=== PATIENT | male | born 1980 | race African-American/Black ===

== ENCOUNTER 2021-03-16 05:31 | Emergency (ER) | payer MEDICAID, SELFPAY ==
[2021-03-16 05:43] VITALS: BP 113/72; BP 124/52; PULSE 104; PULSE 118; RESP 16; TEMP 37; O2SAT 100; O2SAT 95; BMI 23.6
[2021-03-16 05:50] VITALS: PULSE 118
--- NOTE | 2021-03-16 06:04 | ED.PSYCH ---
HPI - Psych General Chief Complaint: ETOH/Substance Use Stated Complaint: PCP USE Time Seen by Provider: 03/16/21 06:04 Source: EMS and police History of Present Illness HPI Narrative: Patient used but denied using it stated that he use heroin was found walking acting erratically on the street patient anxious when arrived in the ER denies any hallucinations Related Data Allergies Allergy/AdvReac Type Severity Reaction Status Date / Time No Known Allergies Allergy Verified 03/16/21 05:57 Review of Systems Review of Systems: Yes all other systems are reviewed and are negative [facility] Past Medical History Medical History Substance abuse Social History Social History Advance Directives: No Advance Directives Information Provided: No Physical Exam Vital Signs: Vital Signs: Last Vital Signs Temp 98.6 F 03/16/21 05:43 Pulse 118 H 03/16/21 05:43 Resp 16 03/16/21 05:43 BP 113/72 03/16/21 05:43 Pulse Ox 95 03/16/21 05:43 Body Mass Index 23.6 Appearance: Alert. Oriented X3. No acute distress. Very anxious ,talking to himself Eyes: PERRLA, No Nystagmus ENT: Pharynx normal. Oral Mucosa moist atraumatic normocephalic Neck: Normal inspection. Neck supple. CVS: Normal heart rate and rhythm. Pulses normal. Respiratory: No respiratory distress. Equal air entry bilateral, no wheezing/rales/rhonchi Abdomen: Soft and nontender. Bowel sounds are present, no mass palpable, no CVA tenderness Skin: Skin warm and dry. Normal skin color. Normal skin turgor. Extremities: No lower extremity edema. No calf tenderness Neuro: Oriented X 3. No motor deficit. No sensory deficit.No cerebellar signs , cranial nerves II-XII intact MDM - Psych Lab Data Labs: Lab Results 03/16/21 Range/Units 06:00 Urine Color YELLOW Urine Appearance HAZY Urine pH 6.0 (5.0-8.0) Ur Specific Universal >= 1.030 H (1.005-1.025) Urine Protein 2+ H (NEG-TRACE) MG/DL Urine Glucose (UA) NEG (NEG) MG/DL Urine Ketones NEG (NEG) MG/DL Urine Blood 3+ H (NEG) Urine Nitrite NEG (NEG) Ur Leukocyte Esterase NEG (NEG) Urine RBC 1-4 (0) /HPF Urine WBC 1-4 (0-4) /HPF Ur Squamous Epith Cells 2+ /LPF Urine Bacteria 2+ /LPF Hyaline Casts 15-29 /LPF Granular Casts 5-9 /LPF Urine Mucus 2+ /LPF Discharge Plan Discharge Clinical Impression: PCP (phencyclidine) abuse Patient Disposition: Home, Self-Care Instructions: Polysubstance Abuse (ED) Additional Instructions: Stop using heroin/PCP follow-up with detox
[2021-03-16 06:05] LABS: Glucose Urine UA NEG (NEG); Leukocyte Esterase Urine NEG (NEG); Nitrite Urine NEG (NEG); Specific Gravity - Urine >= 1.030 (1.005-1.025); Urine Blood 3+ (NEG); Urine Ketones NEG (NEG); Urine Protein 2+ MG/DL (NEG-TRACE)
[2021-03-16 06:06] LABS: Color Urine YELLOW
[2021-03-16 06:07] LABS: Appearance Urine HAZY
[2021-03-16 06:13] LABS: Bacteria Urine 2+ /LPF; Mucus Urine 2+ /LPF; Squamous Epithelial Cell Urine 2+ /LPF
== END 2021-03-16 06:46 | disposition home or self-care (01) ==
PROVIDERS: Emergency Provider Internal Medicine
DX: F11.10 Opioid abuse, uncomplicated (principal); F16.10 Hallucinogen abuse, uncomplicated; Z71.51 Drug abuse counseling and surveillance of drug abuser
CPT/HCPCS: 81001; 99283; 99284

== ENCOUNTER 2021-03-16 14:08 | Inpatient (IN) | payer MEDICAID, SELFPAY ==
[2021-03-16] VITALS (9 sets, daily range): BP systolic 128–151; BP diastolic 64–90; PULSE 72–115; RESP 11–18; TEMP 36.4–36.9; O2SAT 93–100; BMI 28.7
--- NOTE | ~2021-03-16 | XR_ITS ---
EXAMINATION: XR CHEST CLINICAL INFORMATION: Shortness of breath COMPARISON: None TECHNIQUE: Frontal view of the chest was obtained. FINDINGS: The cardiac silhouette is normal. There is mild diffuse bronchial wall thickening. There are no areas of consolidation. Lung volumes are diminished. There are no pleural effusions or pneumothoraces. The bones and soft tissues are unremarkable for the patient's age. XR/XR chest 1V IMPRESSION: Diminished lung volumes. Bronchial wall thickening may be infectious and/or inflammatory in etiology.
--- NOTE | 2021-03-16 14:32 | PC.NURSE ---
patient was discharged from this facility early this morning for same s/s- provider made aware patient acting bizarre, slapping his hands together and rocking back and forth in the recliner unable to be redirected. patient unsure why he is here, denies needing to be here.
[2021-03-16] MEDS: LORazepam 2 MG/ML VIAL IM (14:49)
[2021-03-16] MEDS: Haloperidol Lactate 5 MG/ML VIAL 10 MG IM (14:49)
[2021-03-16 15:18] LABS: MANUAL DIFF FLAG NO
[2021-03-16 15:21] LABS: Basophils Percent Auto 0.4 % (0-2); Eosinophils Absolute Auto 0.1 X10*3/uL (0.0-0.4); Eosinophils Percent Auto 0.6 % (0-4); Hematocrit 38.1 % (42-52); Hemoglobin 11.9 g/dl (14.0-18.0); Imm Gran Abs Auto 0.01 X10*3/uL (0.00-0.03); Imm Gran Pct Auto 0.1 % (0.0-0.4); Lymphocytes Absolute Auto 2.1 X10*3/uL (1.2-4.9); Lymphocytes Percent Auto 26.1 % (20-40); Mean Corpuscular HGB Conc 31.2 g/dl (31.0-36.0); Mean Corpuscular Hemoglobin 27.3 pg (27.0-33.0); Mean Corpuscular Volume 87.4 fL (80-98); Mean Platelet Volume 9.6 fL (9.4-12.4); Monocytes Absolute Auto 1.2 X10*3/uL (0.1-1.2); Monocytes Percent Auto 14.1 % (2-11); Neutrophils Absolute Auto 4.8 X10*3/uL (2.0-8.3); Neutrophils Percent Auto 58.7 % (45-73); Platelet Count 311 X10*3/uL (160-400); Red Blood Count 4.36 X10*6/uL (4.60-5.80); Red Cell Distribution Width 13.9 % (11.0-16.0); White Blood Count 8.2 X10*3/uL (4.8-10.8)
[2021-03-16] MEDS: 0.9 % Sodium Chloride 1,000 ML 999 ML IV ×3 (15:27→16:53)
[2021-03-16] MEDS: Ketamine HCl 500 MG/5 ML VIAL 360 MG IM (15:34)
[2021-03-16 15:58] LABS: Lactic Acid 1.5 mmol/L (0.5-2.0)
--- NOTE | 2021-03-16 16:01 | ED.AMS ---
HPI - Altered Mental Status General Chief Complaint: Altered Mental Status <Zaid Duron MD - Last Filed: 03/16/21 16:13> Stated Complaint: UNDER THE INFLUENCE <Zaid Duron MD - Last Filed: 03/16/21 16:13> Time Seen by Provider: 03/16/21 14:35 <Zaid Duron MD - Last Filed: 03/16/21 16:13> Source: EMS <Zaid Duron MD - Last Filed: 03/16/21 16:13> Mode of arrival: EMS <Zaid Duron MD - Last Filed: 03/16/21 16:13> Limitations: altered mental status <Zaid Duron MD - Last Filed: 03/16/21 16:13> History of Present Illness HPI narrative: 40-year-old male who was brought to the emergency department for evaluation of erratic behavior. Apparently, the patient was outside acting erratically, the patient was making bizarre gestures with his arms, he was singing very loudly and dancing, he was swearing, hitting himself in the head and chest. Police called EMS and the patient was brought to the emergency department. On presentation the patient was moving around the stretcher, he was very diaphoretic and uncooperative. The patient could be redirected but would quickly go back to his erratic behavior. The patient was seen earlier emergency department for similar behavior. The discharge diagnosis was polysubstance use however a urine drug screen was not obtained. <Zaid Duron MD - Last Filed: 03/16/21 16:13> Related Data Allergies/Adverse Reactions: Allergies Allergy/AdvReac Type Severity Reaction Status Date / Time No Known Allergies Allergy Verified 03/16/21 05:57 <Zaid Duron MD - Last Filed: 03/16/21 16:13> Review of Systems Review of Systems: Yes Unobtainable due to mental status <Zaid Duron MD - Last Filed: 03/16/21 16:13> PMFSH Past Medical History PMFSH Narrative: Past medical history: Unobtainable secondary to altered mental status. Surgical history: Unobtainable secondary to altered mental status. Social history: Unobtainable secondary to altered mental status. <Zaid Duron MD - Last Filed: 03/16/21 16:13> Medical History: Medical History Substance abuse <Zaid Duron MD - Last Filed: 03/16/21 16:13> Social History Social History: Social History Advance Directives: No Advance Directives Information Provided: No <Zaid Duron MD - Last Filed: 03/16/21 16:13> Physical Exam Vital Signs: Vital Signs: Last Vital Signs Temp 98.5 F 03/16/21 15:47 Pulse 102 H 03/16/21 15:47 Resp 12 03/16/21 15:47 BP 137/88 03/16/21 15:47 Pulse Ox 94 03/16/21 15:47 Body Mass Index 28.7 <Zaid Duron MD - Last Filed: 03/16/21 16:13> Vital Signs: Last Vital Signs Temp 98.5 F 03/16/21 15:47 Pulse 102 H 03/16/21 15:47 Resp 12 03/16/21 15:47 BP 137/88 03/16/21 15:47 Pulse Ox 94 03/16/21 15:47 Body Mass Index 28.7 <Iban Colin MD - Last Filed: 03/16/21 16:44> Const: Other: Awake, alert, male, very diaphoretic, acting very erratically, will not stick in the chair or on the stretcher, patient is on his feet, dancing, moving his arms around rapidly, singing, shouting, hitting himself in the head and chest. Patient can be rehab directed for seconds to minutes but then resumes his erratic behavior again. <Zaid Duron MD - Last Filed: 03/16/21 16:13> HENMT: Head: Yes normal to inspection, Yes normocephalic and Yes atraumatic <Zaid Duron MD - Last Filed: 03/16/21 16:13> Ears: external ears normal <Zaid Duron MD - Last Filed: 03/16/21 16:13> General nose exam: Normal external nose present <MD Raquel Masters Last Filed: 03/16/21 16:13> Face and sinus: Yes normal facial exam <MD Raquel Masters Last Filed: 03/16/21 16:13> Eyes: General: appearance normal, both eyes and all related structures <Zaid Duron MD - Last Filed: 03/16/21 16:13> Pupils: Equal, round and reactive pupils present <MD Raquel Masters Last Filed: 03/16/21 16:13> Neck: Neck: Yes normal visual inspection, Yes no lymphadenopathy, Yes trachea midline and Yes supple <Zaid Duron MD - Last Filed: 03/16/21 16:13> Chest: Chest palpation & inspection: normal inspection of the chest and normal palpation of entire chest wall <MD Raquel Masters Last Filed: 03/16/21 16:13> Resp: Other: Tachypneic, breath sounds symmetric bilaterally, no wheezing, rhonchi or rales <MD Raquel Masters Last Filed: 03/16/21 16:13> Cardio: Rate: tachycardic <MD Raquel Masters Last Filed: 03/16/21 16:13> Rhythm: regular rhythm <MD Raquel Masters Last Filed: 03/16/21 16:13> Heart sounds: S1 normal heart sound present, S2 normal heart sound present and no murmurs <MD Raquel Masters Last Filed: 03/16/21 16:13> GI: Inspection: Yes normal to inspection <MD Raquel Masters Last Filed: 03/16/21 16:13> Palpation (GI): Soft to palpation, nontender and no guarding <MD Raquel Masters Last Filed: 03/16/21 16:13> Auscultation: normal bowel sounds <MD Raquel Masters Last Filed: 03/16/21 16:13> : General: Yes no CVA tenderness <Zaid Duron MD - Last Filed: 03/16/21 16:13> Back/Spine/Pelvis: Back: no CVA tenderness <Zaid Duron MD - Last Filed: 03/16/21 16:13> Skin: General skin exam: no rashes or lesions noted <Zaid Duron MD - Last Filed: 03/16/21 16:13> Neuro: Other: Pupils are equal round react to light, cranial nerves 2-12 are intact, patient's strength appears to be normal he is moving all his extremities symmetrically, patient will not cooperate with neurologic exam <Zaid Duron MD - Last Filed: 03/16/21 16:13> Cranial nerves: Yes Equal, round and reactive pupils present <Zaid Duron MD - Last Filed: 03/16/21 16:13> Extrem: General: Yes normal to inspection <Zaid Duron MD - Last Filed: 03/16/21 16:13> Psych: Other: Erratic behavior as discussed above <Zaid Duron MD - Last Filed: 03/16/21 16:13> Thought content: Normal thought content present <Zaid Duron MD - Last Filed: 03/16/21 16:13> Course Course Course Narrative: 40-year-old male who presents emergency department for evaluation of a retic behavior, patient was seen early in the emergency department for similar behavior which was felt to be secondary to polysubstance abuse. The patient was very diaphoretic, patient dancing, moving her radically, singing and hitting himself in the head and chest. The patient was redirectable but only for minutes and then he would after radically again. The patient was initially medicated with Haldol 10 mg IM and Ativan 2 mg IM with no effect. I was concerned that the patient had excited delirium and was at high risk for rhabdomyolysis therefore he was given ketamine 4 milligrams/kilogram IM (360 mg). The patient became calm and he was placed on a cardiac and O2 saturation monitor pain. Patient was ordered to get normal saline IV x3 L. laboratory evaluation was also ordered. 1610: CBC revealed a normal white count of 8200, mild anemia with an H&H of 11.9 and 38.8. Lactic acid was 1.5. Chemistry panel, CK, UA, urine tox screen and urine drug screen are all pending. At the end of my shift, the patient's care was turned over to my colleague, Dr. Iban Colin. <Zaid Duron MD - Last Filed: 03/16/21 16:13> Reevaluation(s) Reevaluation #1: received this patient with likely reaction to PCP, now with renal failure and casts, CPK 2340 will admit <Iban Colin MD - Last Filed: 03/16/21 16:44> Time: 16:43 <Iban Colin MD - Last Filed: 03/16/21 16:44> MDM - Altered Mental Status Lab Data Result diagrams: : 03/16/21 15:12 03/16/21 15:54 <Zaid Duron MD - Last Filed: 03/16/21 16:13> Labs: Lab Results 03/16/21 03/16/21 03/16/21 Range/Units 15:12 15:26 15:26 WBC 8.2 (4.8-10.8) X10*3/uL RBC 4.36 L (4.60-5.80) X10*6/uL Hgb 11.9 L (14.0-18.0) g/dl Hct 38.1 L (42-52) % MCV 87.4 (80-98) fL MCH 27.3 (27.0-33.0) pg MCHC 31.2 (31.0-36.0) g/dl RDW 13.9 (11.0-16.0) % Plt Count 311 (160-400) X10*3/uL MPV 9.6 (9.4-12.4) fL Immature Gran % (Auto) 0.1 (0.0-0.4) % Neut % (Auto) 58.7 (45-73) % Lymph % (Auto) 26.1 (20-40) % [place] % (Auto) 14.1 H (2-11) % Eos % (Auto) 0.6 (0-4) % Baso % (Auto) 0.4 (0-2) % Lymph # (Auto) 2.1 (1.2-4.9) X10*3/uL [place] # (Auto) 1.2 (0.1-1.2) X10*3/uL Eos # (Auto) 0.1 (0.0-0.4) X10*3/uL Baso # (Auto) 0.0 (0.0-0.2) X10*3/uL Abs Immat Gran (auto) 0.01 (0.00-0.03) X10*3/uL Absolute Neuts (auto) 4.8 (2.0-8.3) X10*3/uL Absolute Nucleated RBC 0.000 (0.0-0.012) X10*3/uL Nucleated RBC % (auto) 0.0 (0.0-0.2) /100WBC Sodium (135-145) mmol/L Potassium (3.3-5.1) mmol/L Chloride (96-108) mmol/L Carbon Dioxide (22-29) mmol/L Anion Gap (12-20) BUN (9-16) mg/dL Creatinine (0.5-1.4) mg/dL Estim Creat Clear Calc Estimated GFR Random Glucose (60-115) mg/dL Lactic Acid 1.5 (0.5-2.0) mmol/L Calcium (8.4-10.2) mg/dL Total Bilirubin (0.0-1.0) mg/dL AST (5-37) U/L ALT (0-40) U/L Alkaline Phosphatase (39-117) U/L Total Creatine Kinase (38-174) U/L Total Protein (6.5-8.0) g/dL Albumin (3.5-5.0) g/dL Lipase (8-78) U/L Ethyl Alcohol < 10 mg/dL 03/16/21 Range/Units 15:54 WBC (4.8-10.8) X10*3/uL RBC (4.60-5.80) X10*6/uL Hgb (14.0-18.0) g/dl Hct (42-52) % MCV (80-98) fL MCH (27.0-33.0) pg MCHC (31.0-36.0) g/dl RDW (11.0-16.0) % Plt Count (160-400) X10*3/uL MPV (9.4-12.4) fL Immature Gran % (Auto) (0.0-0.4) % Neut % (Auto) (45-73) % Lymph % (Auto) (20-40) % [place] % (Auto) (2-11) % Eos % (Auto) (0-4) % Baso % (Auto) (0-2) % Lymph # (Auto) (1.2-4.9) X10*3/uL [place] # (Auto) (0.1-1.2) X10*3/uL Eos # (Auto) (0.0-0.4) X10*3/uL Baso # (Auto) (0.0-0.2) X10*3/uL Abs Immat Gran (auto) (0.00-0.03) X10*3/uL Absolute Neuts (auto) (2.0-8.3) X10*3/uL Absolute Nucleated RBC (0.0-0.012) X10*3/uL Nucleated RBC % (auto) (0.0-0.2) /100WBC Sodium 141 (135-145) mmol/L Potassium 4.4 (3.3-5.1) mmol/L Chloride 109 H (96-108) mmol/L Carbon Dioxide 22 (22-29) mmol/L Anion Gap 14 (12-20) BUN 29 H (9-16) mg/dL Creatinine 2.11 H (0.5-1.4) mg/dL Estim Creat Clear Calc 51.6 Estimated GFR 35 Random Glucose 82 (60-115) mg/dL Lactic Acid (0.5-2.0) mmol/L Calcium 9.0 (8.4-10.2) mg/dL Total Bilirubin 1.3 H (0.0-1.0) mg/dL AST 74 H (5-37) U/L ALT 32 (0-40) U/L Alkaline Phosphatase 70 (39-117) U/L Total Creatine Kinase 2340 H (38-174) U/L Total Protein 6.9 (6.5-8.0) g/dL Albumin 4.1 (3.5-5.0) g/dL Lipase 9 (8-78) U/L Ethyl Alcohol mg/dL <Zaid Duron MD - Last Filed: 03/16/21 16:13> Lab Results 03/16/21 03/16/21 03/16/21 Range/Units 15:12 15:26 15:26 WBC 8.2 (4.8-10.8) X10*3/uL RBC 4.36 L (4.60-5.80) X10*6/uL Hgb 11.9 L (14.0-18.0) g/dl Hct 38.1 L (42-52) % MCV 87.4 (80-98) fL MCH 27.3 (27.0-33.0) pg MCHC 31.2 (31.0-36.0) g/dl RDW 13.9 (11.0-16.0) % Plt Count 311 (160-400) X10*3/uL MPV 9.6 (9.4-12.4) fL Immature Gran % (Auto) 0.1 (0.0-0.4) % Neut % (Auto) 58.7 (45-73) % Lymph % (Auto) 26.1 (20-40) % [place] % (Auto) 14.1 H (2-11) % Eos % (Auto) 0.6 (0-4) % Baso % (Auto) 0.4 (0-2) % Lymph # (Auto) 2.1 (1.2-4.9) X10*3/uL [place] # (Auto) 1.2 (0.1-1.2) X10*3/uL Eos # (Auto) 0.1 (0.0-0.4) X10*3/uL Baso # (Auto) 0.0 (0.0-0.2) X10*3/uL Abs Immat Gran (auto) 0.01 (0.00-0.03) X10*3/uL Absolute Neuts (auto) 4.8 (2.0-8.3) X10*3/uL Absolute Nucleated RBC 0.000 (0.0-0.012) X10*3/uL Nucleated RBC % (auto) 0.0 (0.0-0.2) /100WBC Sodium (135-145) mmol/L Potassium (3.3-5.1) mmol/L Chloride (96-108) mmol/L Carbon Dioxide (22-29) mmol/L Anion Gap (12-20) BUN (9-16) mg/dL Creatinine (0.5-1.4) mg/dL Estim Creat Clear Calc Estimated GFR Random Glucose (60-115) mg/dL Lactic Acid 1.5 (0.5-2.0) mmol/L Calcium (8.4-10.2) mg/dL Total Bilirubin (0.0-1.0) mg/dL AST (5-37) U/L ALT (0-40) U/L Alkaline Phosphatase (39-117) U/L Total Creatine Kinase (38-174) U/L Total Protein (6.5-8.0) g/dL Albumin (3.5-5.0) g/dL Lipase (8-78) U/L Ethyl Alcohol < 10 mg/dL 03/16/21 Range/Units 15:54 WBC (4.8-10.8) X10*3/uL RBC (4.60-5.80) X10*6/uL Hgb (14.0-18.0) g/dl Hct (42-52) % MCV (80-98) fL MCH (27.0-33.0) pg MCHC (31.0-36.0) g/dl RDW (11.0-16.0) % Plt Count (160-400) X10*3/uL MPV (9.4-12.4) fL Immature Gran % (Auto) (0.0-0.4) % Neut % (Auto) (45-73) % Lymph % (Auto) (20-40) % [place]estone % (Auto) (2-11) % Eos % (Auto) (0-4) % Baso % (Auto) (0-2) % Lymph # (Auto) (1.2-4.9) X10*3/uL [place] # (Auto) (0.1-1.2) X10*3/uL Eos # (Auto) (0.0-0.4) X10*3/uL Baso # (Auto) (0.0-0.2) X10*3/uL Abs Immat Gran (auto) (0.00-0.03) X10*3/uL Absolute Neuts (auto) (2.0-8.3) X10*3/uL Absolute Nucleated RBC (0.0-0.012) X10*3/uL Nucleated RBC % (auto) (0.0-0.2) /100WBC Sodium 141 (135-145) mmol/L Potassium 4.4 (3.3-5.1) mmol/L Chloride 109 H (96-108) mmol/L Carbon Dioxide 22 (22-29) mmol/L Anion Gap 14 (12-20) BUN 29 H (9-16) mg/dL Creatinine 2.11 H (0.5-1.4) mg/dL Estim Creat Clear Calc 51.6 Estimated GFR 35 Random Glucose 82 (60-115) mg/dL Lactic Acid (0.5-2.0) mmol/L Calcium 9.0 (8.4-10.2) mg/dL Total Bilirubin 1.3 H (0.0-1.0) mg/dL AST 74 H (5-37) U/L ALT 32 (0-40) U/L Alkaline Phosphatase 70 (39-117) U/L Total Creatine Kinase 2340 H (38-174) U/L Total Protein 6.9 (6.5-8.0) g/dL Albumin 4.1 (3.5-5.0) g/dL Lipase 9 (8-78) U/L Ethyl Alcohol mg/dL <Iban Colin MD - Last Filed: 03/16/21 16:44> Discharge Plan Discharge Patient Disposition: Admitted As Inpatient <Zaid Duron MD - Last Filed: 03/16/21 16:13>
[2021-03-16 16:12] LABS: Ethanol < 10 mg/dL
[2021-03-16 16:39] LABS: Alanine Aminotransferase 32 U/L (0-40); Albumin Level 4.1 g/dL (3.5-5.0); Alkaline Phosphatase 70 U/L (39-117); Anion Gap 14 (12-20); Aspartate Amino Transferase 74 U/L (5-37); Bilirubin Total 1.3 mg/dL (0.0-1.0); Blood Urea Nitrogen 29 mg/dL (9-16); Carbon Dioxide 22 mmol/L (22-29); Chloride 109 mmol/L (96-108); Creatinine Clr Calc Pharmacy 51.6; Estimated Glomerular Filt Rate 35; Glucose Random 82 mg/dL (60-115); Lipase 9 U/L (8-78); Potassium 4.4 mmol/L (3.3-5.1); Sodium 141 mmol/L (135-145); Total Protein 6.9 g/dL (6.5-8.0)
--- NOTE | 2021-03-16 16:56 | PC.NURSE ---
Patient is in the bed asleep currently. Pt respirations are even and nonlabored at a rate of 12. pt is also on CO2 detector which reads 39.
--- NOTE | 2021-03-16 17:04 | ECG_ITS ---
Test Reason : OVERDOSE Blood Pressure : / mmHG Vent. Rate : 078 BPM Atrial Rate : 078 BPM P-R Int : 150 ms QRS Dur : 076 ms QT Int : 406 ms P-R-T Axes : 046 036 031 degrees QTc Int : 462 ms Normal sinus rhythm Normal ECG No previous ECGs available Referred By: Iban Colin Electronically Signed By:MELVIN LEMUS MD
--- NOTE | 2021-03-16 17:40 | PC.NURSE ---
16fr grant catheter placed using sterile technique. Urnie flow obtained and balloon inflated with 10 ml ns. catheter secured to right inner thigh with securement device.
--- NOTE | 2021-03-16 17:57 | PC.NURSE ---
Hospitalist at bedside requesting a grant catheter placed in patient
[2021-03-16 18:03] LABS: Glucose Urine UA NEG (NEG); Leukocyte Esterase Urine NEG (NEG); Nitrite Urine NEG (NEG); PH 5.5 (5.0-8.0); Specific Gravity - Urine >= 1.030 (1.005-1.025); UACC Culture Trigger NO; Urine Blood 3+ (NEG); Urine Ketones 15 MG/DL (NEG); Urine Protein 2+ MG/DL (NEG-TRACE)
[2021-03-16 18:21] LABS: Appearance Urine HAZY; Color Urine YELLOW
[2021-03-16 18:30] LABS: Amphetamine Screen Urine Not Detected (Not Detect); Barbiturates, Urine Not Detected (Not Detect); Benzodiazepines Screen Urine Not Detected (Not Detect); Cannabinoid Screen Urine Not Detected (Not Detect); Cocaine Screen Urine POSITIVE (Not Detect); Fentanyl, urine POSITIVE (Not Detect); Opiate Screen Urine POSITIVE (Not Detect); Phencyclidine Screen Urine Not Detected (Not Detect)
[2021-03-16 18:53] LABS: Amorphous Sediment Urine 1+ /LPF; Bacteria Urine 1+ /LPF; Squamous Epithelial Cell Urine 1+ /LPF; WBC Urine 0 /HPF (0-4)
[2021-03-16 19:22] LABS: Influenza A PCR NEGATIVE (Negative); Influenza B PCR NEGATIVE (Negative); Resp Syncy Virus RNA Qual PCR NEGATIVE (Negative); SARS COV2 PCR INHOUSE NEGATIVE (Negative)
--- NOTE | 2021-03-16 19:35 | PHA.MEDREC ---
Pharmacy Consult ? Medication Reconciliation Pharmacy has completed the medication reconciliation.
[2021-03-16] MEDS: Dextrose 5 % and 0.9 % NaCl 1,000 ML 100 ML IVCONT (19:54)
--- NOTE | 2021-03-16 20:58 | HP_ITS ---
DATE OF SERVICE: 03/16/2021 CHIEF COMPLAINT: Altered behavior. HISTORY OF PRESENTING ILLNESS: This is a 40-year-old gentleman, who was brought into the emergency room for evaluation of erratic behavior. The patient was found on the street, making bizarre gestures with his arms, singing loudly and dancing. He was swearing, hitting himself in the head and chest. Therefore, police called EMS and the patient was brought to [place] [facility]. In the ER, the patient was moving around the stretcher. He was noted to be diaphoretic and tachycardic; therefore, patient was treated in the emergency room with multiple rounds of Ativan as well as Haldol and ketamine. The patient now is completely sedated. Of note, the patient was seen early this a.m. in the emergency department with similar behavior and was discharged with a diagnosis of polysubstance abuse. The patient's laboratory data revealed that he has elevated creatinine of 2.1, mildly elevated liver enzyme, and an elevated creatine kinase of 2340. His electrolytes otherwise are unremarkable. CBC showed a hematocrit of 38.1, normal platelet count. The patient is now being admitted to [facility] with acute encephalopathy related to toxic ingestion. His urine toxicology just came back positive for opiates, fentanyl, and cocaine. His alcohol level is less than 10. PAST MEDICAL HISTORY: Unobtainable due to sedation. PAST SURGICAL HISTORY: Unobtainable as above. SOCIAL HISTORY: Unobtainable. ALLERGIES: NO KNOWN ALLERGIES. HOME MEDICATIONS: Unknown. REVIEW OF SYSTEMS: Unable to obtain due to sedation PHYSICAL EXAMINATION: GENERAL: The patient is unarousable. VITALS: BP 130/74, pulse of 78, respiratory rate of 11, O2 saturation 98% on 2 L LUNGS: coarse breath sounds bilaterally. HEART: Regular rate and rhythm. ABDOMEN: Soft. Bowel sounds are audible. There is a midline scar noted. EXTREMITIES: Without edema. NEURO: The patient is not arousable likely due to use of heavy sedatives. ASSESSMENT AND PLAN: This is a 40-year-old gentleman, who was brought into [facility] due to erratic behavior. The patient was seen early in the emergency room with similar behavioral issues and was discharged with a diagnosis of polysubstance abuse. The patient was brought back to [place] [place] [facility] with persistent abnormal behavior including singing, hitting himself. The patient in the ER continued to have abnormal behavior; therefore, was treated with 10 mg of IM Haldol followed by Ativan 2 mg IM with no effect. It was felt that the patient is delirious. Therefore, ketamine 4 mg/kg total 360 mg IM was given. After receiving the medication, the patient has been sleeping. His vitals currently are stable, obtain an EKG prior to admission it showed he has normal sinus rhythm. No acute abnormality noted. Chest x-ray obtained shows diminished lung volumes, bronchial wall thickening may be infectious or inflammatory in etiology. The patient will be admitted to telemetry unit, with a diagnosis of acute encephalopathy. Problem List: 1. Acute toxic metabolic encephalopathy. will continue IV fluids, tele monitor. We will assess respiration closely. If the patient is unable to maintain his airway or become more sedated, we will have low threshold for transferring to ICU. We will obtain care team consult for history of substance abuse. 2. Acute kidney injury with rhabdomyolysis. The patient will be treated with IV fluids. follow renal function and CPK closely. 3. History of cocaine and marijuana abuse. We will obtain care team consult. 4. Deep vein thrombosis prophylaxis. Low risk for deep vein thrombosis with no other comorbidities. MD JENNY Stiles/PILAR / [phone] MTDD
[2021-03-17 00:37] VITALS: BMI 25.2
[2021-03-17 02:58] VITALS: BP 120/64; PULSE 74; RESP 18; TEMP 36.4; O2SAT 100
[2021-03-17] MEDS: Dextrose 5 % and 0.9 % NaCl 1,000 ML 100 ML IVCONT (06:06)
[2021-03-17 06:58] LABS: Anion Gap 11 (12-20); Blood Urea Nitrogen 16 mg/dL (9-16); Calcium 8.5 mg/dL (8.4-10.2); Carbon Dioxide 24 mmol/L (22-29); Chloride 111 mmol/L (96-108); Estimated Glomerular Filt Rate > 60; Glucose Random 84 mg/dL (60-115); Potassium 4.1 mmol/L (3.3-5.1); Sodium 142 mmol/L (135-145)
[2021-03-17 07:34] VITALS: BP 146/79; PULSE 87; RESP 20; TEMP 36.9; O2SAT 100
[2021-03-17 08:24] LABS: Alanine Aminotransferase 30 U/L (0-40); Albumin Level 3.7 g/dL (3.5-5.0); Alkaline Phosphatase 63 U/L (39-117); Aspartate Amino Transferase 75 U/L (5-37); Bilirubin Direct 0.4 mg/dL (0.0-0.5); Bilirubin Total 0.9 mg/dL (0.0-1.0); Total Protein 6.3 g/dL (6.5-8.0)
[2021-03-17 11:17] VITALS: BP 134/72; PULSE 87; RESP 20; TEMP 37.2; O2SAT 99
--- NOTE | 2021-03-17 12:34 | MHC.CM.PN ---
Addendum entered by Fide Sanz 03/17/21 15:50: PT CLEARED TO DC HOME TODAY WITH NO SERVICES Addendum entered by Fide Sanz 03/17/21 14:03: REFERRAL SENT TO [facility] [place] [facility] TO ENSURE PT HAS HEALTH INSURANCE HE DOES NOT HAVE, OR WILL NOT PROVIDE, ANY DETAILS. Original Note: CM ATTEMPTED TO MEET WITH PT WHO WAS MINIMALLY ENGAGED. PT DID ANSWER SOME QUESTIONS HOWEVER NOT OTHERS. PT REPORTS HE DOES HAVE [facility] BUT DOES NOT HAVE A PCP. PT DID NOT RESPOND WHEN ASKED IF HE NEEDED INFO ON GETTING A PCP. PT SHOOK HIS HEAD NO WHEN ASKED ABOUT DME AND SERVICES. CURRENT DC PLAN IS HOME PENDING CARE TEAM CONSULT. TRANSPORT UNKNOWN
--- NOTE | 2021-03-17 14:00 | MHC.RECOVRN ---
T/w met with pt after consult placed to CARE Team. T/w introduced self to pt. Pt declined to speak with t/w regarding substance use. Pt provided with resources as well as t/w card if he would like to discuss recovery. LB and RN aware.
[2021-03-17 15:26] VITALS: BP 140/84; PULSE 87; RESP 18; TEMP 36.8; O2SAT 96
--- NOTE | 2021-03-17 15:42 | PM.DS ---
DS: Providers Provider Date of Service: 03/17/21 Date of admission: 03/16/21 18:49 Primary care physician: Unknown Physician Consults: 03/17/21 11:15 Consult to Care Team Routine Comment: Reason for consultation: substance abuse DS: Medications Discharge Medications Home Medications: Home Medications Medication Instructions Recorded Confirmed No Known Home Meds 03/16/21 03/16/21 DS: Summary Hospital Course Hospital Course: History of presenting illness 40-year-old gentleman, who was brought into the emergency room for evaluation of erratic behavior.? The patient was found on the street, making bizarre gestures with his arms, singing loudly and dancing.? He was swearing, hitting himself in the head and chest.? Therefore, police called EMS and the patient was brought to [facility].? In the ER, the patient was moving around the stretcher.? He was noted to be diaphoretic and tachycardic therefore, patient was treated in the emergency room with multiple rounds of Ativan as well as Haldol and ketamine.? The patient now is completely sedated. Of note, the patient was seen early this a.m. in the emergency department with similar behavior and was discharged with a diagnosis of polysubstance abuse. The patient's laboratory data revealed that he has elevated creatinine of 2.1,mildly elevated liver enzyme, and an elevated creatine kinase of 2340.? His electrolytes otherwise are unremarkable.? CBC showed a hematocrit of 38.1,normal platelet count.? The patient is now being admitted to [facility] with acute encephalopathy related to toxic ingestion.? His urine toxicology just came back positive for opiates, fentanyl, and cocaine.? His alcohol level is less than 10. Hospital course Patient admitted to medical floor with diagnosis of Acute encephalopathy and acute kidney injury related to illicit drug use, patient treated with IV fluids, tele monitor showed no arrhythmia, this a.m. patient awake alert Informed that he smoke cocaine, and use opiates , also smokes cigarettes 1 pack a day, denies alcohol use, denies any other medical issues, not on home medications, patient tolerating diet with no nausea no vomiting or abdominal pain there is no evidence of acute infection, renal function improved patient refused to be seen by care team, therefore is being discharged home with strong recommendation to abstain from illicit drug use and to drink plenty of fluids since CPK remains elevated. Discharge diagnosis Acute toxic metabolic encephalopathy Polysubstance abuse Acute renal failure Rhabdomyolysis Time Spent with Patient Time attestation: Total time spent providing and/or coordinating discharge services: Discharge coordination time: Greater than 30 minutes Quality: Stroke Does the patient have a stroke diagnosis?: No Physical Exam Vital Signs: Vital Signs: Last Vital Signs Temp 98.2 F 03/17/21 15:26 Pulse 87 03/17/21 15:26 Resp 18 03/17/21 15:26 BP 140/84 H 03/17/21 15:26 Pulse Ox 96 03/17/21 15:26 Body Mass Index 25.2 General patient resting comfortably in no acute distress. Neck is supple no JVD. CVS regular rate rhythm, Respiratory lungs clear to auscultation, no respiratory distress, no wheeze, no rhonchi. Gastrointestinal abdomen soft, nontender, bowel sounds audible, no guarding , no rigidity. Extremities no clubbing cyanosis or edema. Neuro nonfocal patient moving all 4 extremity speech clear. Skin no rash DS: Data Data Completed and Pending Labs on day of discharge: Laboratory Results - last 24 hr 03/16/21 03/16/21 03/16/21 15:12 15:26 15:26 Sodium Potassium Chloride Carbon Dioxide Anion Gap BUN Creatinine Estim Creat Clear Calc Estimated GFR Random Glucose Lactic Acid 1.5 Calcium Total Bilirubin Direct Bilirubin AST ALT Alkaline Phosphatase Total Creatine Kinase Troponin I High Sens 5.0 Total Protein Albumin Lipase Urine Color Urine Appearance Urine pH Ur Specific [place] Urine Protein Urine Glucose (UA) Urine Ketones Urine Blood Urine Nitrite Ur Leukocyte Esterase Urine RBC Urine WBC Ur Squamous Epith Cells Amorphous Sediment Urine Bacteria Granular Casts Urine Opiates Screen Urine Fentanyl Screen Ur Barbiturates Screen Ur Phencyclidine Scrn Ur Amphetamines Screen U Benzodiazepines Scrn Urine Cocaine Screen U Marijuana (THC) Screen Ethyl Alcohol < 10 Coronavirus (PCR) Influenza Type A (PCR) Influenza Type B (PCR) RSV RNA Qual (PCR) 03/16/21 03/16/21 03/16/21 15:54 17:52 17:52 Sodium 141 Potassium 4.4 Chloride 109 H Carbon Dioxide 22 Anion Gap 14 BUN 29 H Creatinine 2.11 H Estim Creat Clear Calc 51.6 Estimated GFR 35 Random Glucose 82 Lactic Acid Calcium 9.0 Total Bilirubin 1.3 H Direct Bilirubin AST 74 H ALT 32 Alkaline Phosphatase 70 Total Creatine Kinase 2340 H Troponin I High Sens Total Protein 6.9 Albumin 4.1 Lipase 9 Urine Color YELLOW Urine Appearance HAZY Urine pH 5.5 Ur Specific [place] >= 1.030 H Urine Protein 2+ H Urine Glucose (UA) NEG Urine Ketones 15 Urine Blood 3+ H Urine Nitrite NEG Ur Leukocyte Esterase NEG Urine RBC 1-4 Urine WBC 0 Ur Squamous Epith Cells 1+ Amorphous Sediment 1+ Urine Bacteria 1+ Granular Casts 5-9 Urine Opiates Screen Urine Fentanyl Screen Ur Barbiturates Screen Ur Phencyclidine Scrn Ur Amphetamines Screen U Benzodiazepines Scrn Urine Cocaine Screen U Marijuana (THC) Screen Ethyl Alcohol Coronavirus (PCR) NEGATIVE Influenza Type A (PCR) NEGATIVE Influenza Type B (PCR) NEGATIVE RSV RNA Qual (PCR) NEGATIVE 03/16/21 03/16/21 03/17/21 17:52 19:23 05:39 Sodium 142 Potassium 4.1 Chloride 111 H Carbon Dioxide 24 Anion Gap 11 L BUN 16 Creatinine 1.29 Estim Creat Clear Calc 77.0 Estimated GFR > 60 Random Glucose 84 Lactic Acid Calcium 8.5 Total Bilirubin 0.9 Direct Bilirubin 0.4 AST 75 H ALT 30 Alkaline Phosphatase 63 Total Creatine Kinase 2717 H Troponin I High Sens Total Protein 6.3 L Albumin 3.7 Lipase Urine Color Urine Appearance Urine pH Ur Specific [place] Urine Protein Urine Glucose (UA) Urine Ketones Urine Blood Urine Nitrite Ur Leukocyte Esterase Urine RBC Urine WBC Ur Squamous Epith Cells Amorphous Sediment Urine Bacteria Granular Casts Urine Opiates Screen POSITIVE H Urine Fentanyl Screen POSITIVE H Ur Barbiturates Screen Not Detected Ur Phencyclidine Scrn Not Detected Ur Amphetamines Screen Not Detected U Benzodiazepines Scrn Not Detected Urine Cocaine Screen POSITIVE H U Marijuana (THC) Screen Not Detected Ethyl Alcohol Coronavirus (PCR) Influenza Type A (PCR) Influenza Type B (PCR) RSV RNA Qual (PCR) Discharge Plan Discharge Patient Disposition: Home, Self-Care Discharge Diagnosis: Acute encephalopathy Rhabdomyolysis Polysubstance abuse Referrals: Physician,Unknown [Primary Care Provider] - 1 Week Discharge Medications: No Action No Known Home Meds RF: 0 Discharge Orders: Discharge Order (Routine); Ordered 03/17/21 Ordered By: Shyam Uriostegui Diet: advance to usual diet Activity on Discharge: As tolerated Stand Alone Forms: Patient Portal Discharge page Care Plan Goals: Polysubstance abuse/altered mental status strongly recommend to abstain from drug abuse patient refused to see care team Recommended to drink plenty of fluids due to elevated CPK Health Concerns: Abstain from illicit drug use, drink plenty of fluid Plan of Treatment: Follow-up with primary care physician in 1 week Assessment: As above
--- NOTE | 2021-03-17 15:44 | PC.NURSE ---
Patient in [facility] for monitoring s/p ingestion of high dose opioids to cause extreme psychosis in the field. Awakens to verbal stim, mostly dozing throughout the day, stating upon awakening that he wants to leave. Doctor in to eval patient but did not want to discharge. SR on the monitor, VSS. Wright removed. Patient refusing to speak to Care Team in regards to his sunstance use. Continues to state he just wants to leave. Consumed full lunch tray. Dr. Uriostegui notified of patient's desire to leave. She states she will discharge him to Home.
== END 2021-03-17 16:30 | disposition home or self-care (01) | DRG 917 ==
LOC: HO.ED 16:44 → HO.EDOVER 18:58 → HO.IMC 19:38
PROVIDERS: Emergency Medicine; Admitting Provider Hospitalist; Emergency Provider Emergency Medicine Emergency Medical Services; Visit Provider Hospitalist
DX: T40.5X1A Poisoning by cocaine, accidental (unintentional), initial encounter (principal); G92 Toxic encephalopathy; N17.9 Acute kidney failure, unspecified; M62.82 Rhabdomyolysis; T40.2X5A Adverse effect of other opioids, initial encounter; F19.10 Other psychoactive substance abuse, uncomplicated; F17.210 Nicotine dependence, cigarettes, uncomplicated; Z71.6 Tobacco abuse counseling; Z20.822 Contact with and (suspected) exposure to COVID-19; Y92.9 Unspecified place or not applicable
CPT/HCPCS: 0241U; 36415; 71045; 80048; 80053; 80076; 80307; 81001; 82077; 82550; 83605; 83690; 84484; 85025; 93005; 99285; C1758; J2060

== ENCOUNTER 2021-03-23 22:55 | Emergency (ER) | payer MEDICAID, SELFPAY ==
[2021-03-23 23:04] VITALS: BP 108/51; PULSE 110; RESP 20; TEMP 36.8; O2SAT 93
[2021-03-23 23:10] VITALS: BP 108/57; PULSE 113; RESP 27; TEMP 35.7; O2SAT 92; BMI 20.5
[2021-03-24 00:48] VITALS: BP 112/63; PULSE 82; RESP 14; O2SAT 95
--- NOTE | 2021-03-24 00:50 | ED.PSYCH ---
HPI - Psych General Chief Complaint: ETOH/Substance Use Stated Complaint: OD Time Seen by Provider: 03/24/21 00:40 Source: EMS Mode of arrival: EMS Limitations: altered mental status History of Present Illness HPI Narrative: Patient comes emergency room by EMS, patient was found in [place] acting erratically. Patient was seen here a few days ago with the same complaint. Patient states that today he was using marijuana and Klonopin. Next item the patient was here, his urine tested positive for opiates, fentanyl and cocaine. At this time, patient is somnolent, arousable but unable to give any history, falls right back asleep. Vital stable. Related Data Home Medications Medication Instructions Recorded Confirmed No Known Home Meds 03/16/21 03/16/21 Allergies Allergy/AdvReac Type Severity Reaction Status Date / Time No Known Allergies Allergy Verified 03/16/21 05:57 Review of Systems Review of Systems: Yes Unobtainable due to mental status PMFSH Past Medical History Medical History Substance abuse Social History Social History Household Members: Unknown / Unable to assess Unable to assess alcohol history related to: Unknown Alcohol intake: unknown Patient Tobacco Use Status: Tobacco use Unknown Use of substances other than those prescribed or required for medical reasons: Yes Substance Use Type: Crack/Cocaine and Marijuana Substance Use Frequency: Chronic Longstanding Substance Use Frequency Other:: [employer] Last Used Substance: Just Prior to Admission Any prior treatment program specific to substance use: No Advance Directives: No Advance Directives Information Provided: Yes service: No Current occupational status: unemployed Physical Exam Vital Signs: Vital Signs: Last Vital Signs Temp 96.3 F L 03/23/21 23:10 Pulse 82 03/24/21 00:48 Resp 14 03/24/21 00:48 BP 112/63 03/24/21 00:48 Pulse Ox 95 03/24/21 00:48 Body Mass Index 20.5 Const: Other: Appearance: Alert. No acute distress, intoxicated Eyes: Pupils equal, round and reactive to light. Injected conjunctiva ENT: Pharynx normal. Neck: Normal inspection. Neck supple. No lymph nodes noted. No crepitus CVS: Normal heart rate and rhythm. Pulses normal. Normal S1 and S2 Respiratory: No respiratory distress. Breath sounds normal. No Wheezing. No rales Abdomen: Soft and nontender. No rigidity. No distention. Skin: Skin warm and dry. Normal skin color. Normal skin turgor. Extremities: No lower extremity edema. No lower extremity edema. No Lacerations. No Rash Neuro: Very somnolent, easily arousable Course Course Course Narrative: Patient's lab shows that he has again a creatinine of 2.11, patient is being given IV fluids, chemistry was recheck at 05:00 after 2 L of normal saline. Sign out given to Dr. Duron. [facility] - Psych Lab Data Result diagrams: 03/24/21 00:55 03/24/21 00:55 Labs: Lab Results 03/24/21 03/24/21 Range/Units 00:55 00:55 WBC 8.0 (4.8-10.8) X10*3/uL RBC 4.15 L (4.60-5.80) X10*6/uL Hgb 11.6 L (14.0-18.0) g/dl Hct 36.9 L (42-52) % MCV 88.9 (80-98) fL MCH 28.0 (27.0-33.0) pg MCHC 31.4 (31.0-36.0) g/dl RDW 14.2 (11.0-16.0) % Plt Count 327 (160-400) X10*3/uL MPV 9.3 L (9.4-12.4) fL Immature Gran % (Auto) 0.3 (0.0-0.4) % Neut % (Auto) 66.6 (45-73) % Lymph % (Auto) 22.1 (20-40) % [place] % (Auto) 9.5 (2-11) % Eos % (Auto) 1.1 (0-4) % Baso % (Auto) 0.4 (0-2) % Lymph # (Auto) 1.8 (1.2-4.9) X10*3/uL [place] # (Auto) 0.8 (0.1-1.2) X10*3/uL Eos # (Auto) 0.1 (0.0-0.4) X10*3/uL Baso # (Auto) 0.0 (0.0-0.2) X10*3/uL Abs Immat Gran (auto) 0.02 (0.00-0.03) X10*3/uL Absolute Neuts (auto) 5.3 (2.0-8.3) X10*3/uL Absolute Nucleated RBC 0.000 (0.0-0.012) X10*3/uL Nucleated RBC % (auto) 0.0 (0.0-0.2) /100WBC Sodium 144 (135-145) mmol/L Potassium 4.4 (3.3-5.1) mmol/L Chloride 109 H (96-108) mmol/L Carbon Dioxide 27 (22-29) mmol/L Anion Gap 12 (12-20) BUN 29 H D (9-16) mg/dL Creatinine 2.11 H (0.5-1.4) mg/dL Estim Creat Clear Calc 40.6 Estimated GFR 35 Random Glucose 85 (60-115) mg/dL Calcium 9.5 D (8.4-10.2) mg/dL Total Bilirubin 0.6 (0.0-1.0) mg/dL Direct Bilirubin 0.2 (0.0-0.5) mg/dL AST 45 H (5-37) U/L ALT 35 (0-40) U/L Alkaline Phosphatase 88 D (39-117) U/L Total Creatine Kinase 850 H D (38-174) U/L Total Protein 7.4 (6.5-8.0) g/dL Albumin 4.2 (3.5-5.0) g/dL Discharge Plan Discharge Clinical Impression: MIGUEL (acute kidney injury), Polysubstance abuse Patient Disposition: Home, Self-Care Instructions: Acute Kidney Injury (DC), Polysubstance Abuse (ED) Additional Instructions: Please follow-up with your primary care physician tomorrow. If you have any worsening or new symptoms, please return to the emergency room or call 911 Prescriptions: No Action No Known Home Meds RF: 0
[2021-03-24 01:02] LABS: MANUAL DIFF FLAG NO
[2021-03-24 01:04] LABS: Basophils Percent Auto 0.4 % (0-2); Eosinophils Absolute Auto 0.1 X10*3/uL (0.0-0.4); Eosinophils Percent Auto 1.1 % (0-4); Hematocrit 36.9 % (42-52); Hemoglobin 11.6 g/dl (14.0-18.0); Imm Gran Abs Auto 0.02 X10*3/uL (0.00-0.03); Imm Gran Pct Auto 0.3 % (0.0-0.4); Lymphocytes Absolute Auto 1.8 X10*3/uL (1.2-4.9); Lymphocytes Percent Auto 22.1 % (20-40); Mean Corpuscular HGB Conc 31.4 g/dl (31.0-36.0); Mean Corpuscular Volume 88.9 fL (80-98); Mean Platelet Volume 9.3 fL (9.4-12.4); Monocytes Absolute Auto 0.8 X10*3/uL (0.1-1.2); Monocytes Percent Auto 9.5 % (2-11); Neutrophils Absolute Auto 5.3 X10*3/uL (2.0-8.3); Neutrophils Percent Auto 66.6 % (45-73); Platelet Count 327 X10*3/uL (160-400); Red Blood Count 4.15 X10*6/uL (4.60-5.80); Red Cell Distribution Width 14.2 % (11.0-16.0)
[2021-03-24 01:33] LABS: Alanine Aminotransferase 35 U/L (0-40); Albumin Level 4.2 g/dL (3.5-5.0); Alkaline Phosphatase 88 U/L (39-117); Anion Gap 12 (12-20); Aspartate Amino Transferase 45 U/L (5-37); Bilirubin Direct 0.2 mg/dL (0.0-0.5); Bilirubin Total 0.6 mg/dL (0.0-1.0); Blood Urea Nitrogen 29 mg/dL (9-16); Calcium 9.5 mg/dL (8.4-10.2); Carbon Dioxide 27 mmol/L (22-29); Chloride 109 mmol/L (96-108); Creatinine Clr Calc Pharmacy 40.6; Estimated Glomerular Filt Rate 35; Glucose Random 85 mg/dL (60-115); Potassium 4.4 mmol/L (3.3-5.1); Sodium 144 mmol/L (135-145); Total Protein 7.4 g/dL (6.5-8.0)
[2021-03-24 02:00] VITALS: RESP 14
[2021-03-24] MEDS: 0.9 % Sodium Chloride 1,000 ML 999 ML IVCONT ×2 (03:16→03:17)
[2021-03-24 04:00] VITALS: RESP 14
[2021-03-24 06:35] VITALS: BP 143/84; PULSE 72; RESP 12; TEMP 36.3; O2SAT 100
== END 2021-03-24 08:51 | disposition home or self-care (01) ==
PROVIDERS: Emergency Medicine; Emergency Provider Emergency Medicine Emergency Medical Services
DX: R41.82 Altered mental status, unspecified (principal); N17.9 Acute kidney failure, unspecified; F19.10 Other psychoactive substance abuse, uncomplicated
CPT/HCPCS: 36415; 80048; 80076; 82550; 85025; 96360; 99284; 99285

== ENCOUNTER 2021-03-24 15:26 | Emergency (ER) | payer MEDICAID, SELFPAY ==
[2021-03-24 15:45] VITALS: BP 100/61; PULSE 106; RESP 20; TEMP 36.3; O2SAT 95
--- NOTE | 2021-03-24 16:10 | ED_ITS ---
HPI - Psych General Chief Complaint: Psychiatric Symptoms <Nata Linder NP - Last Filed: 03/25/21 02:26> Stated Complaint: crisis <Nata Linder NP - Last Filed: 03/25/21 02:26> Time Seen by Provider: 03/24/21 16:10 <Nata Linder NP - Last Filed: 03/25/21 02:26> Source: patient and EMS <Nata Linder NP - Last Filed: 03/25/21 02:26> Mode of arrival: EMS <Nata Linder NP - Last Filed: 03/25/21 02:26> Limitations: altered mental status <Nata Linder NP - Last Filed: 03/25/21 02:26> History of Present Illness HPI Narrative: Patient presents to the ER via EMS and [facility] for restlessness and confusion. Patient is not court forthcoming with information. Was discharged from this facility last night with similar presentation, positive tox screen for cocaine and fentanyl. <Nata Linder NP - Last Filed: 03/25/21 02:26> MD complaint: altered mental status and substance abuse <Nata Linder NP - Last Filed: 03/25/21 02:26> Onset (ago): unknown <Nata Linder NP - Last Filed: 03/25/21 02:26> History of same: Yes <Nata Linder NP - Last Filed: 03/25/21 02:26> Relieving factors: none <Nata Linder NP - Last Filed: 03/25/21 02:26> Exacerbating factors: drug use <Nata Linder NP - Last Filed: 03/25/21 02:26> Context: recent drug abuse <Nata Linder NP - Last Filed: 03/25/21 02:26> Associated psychiatric symptoms: depression <Nata Linder NP - Last Filed: 03/25/21 02:26> Associated symptoms: denies other symptoms <Nata Linder NP - Last Filed: 03/25/21 02:26> Related Data Home Medications: Home Medications Medication Instructions Recorded Confirmed No Known Home Meds 03/16/21 03/16/21 <Nata Linder NP - Last Filed: 03/25/21 02:26> Allergies/Adverse Reactions: Allergies Allergy/AdvReac Type Severity Reaction Status Date / Time No Known Allergies Allergy Verified 03/16/21 05:57 <Nata Linder NP - Last Filed: 03/25/21 02:26> Review of Systems Review of Systems: Yes Unobtainable due to mental status <Nata Linder NP - Last Filed: 03/25/21 02:26> [facility] Past Medical History Attestation statement: The following information was validated with the patient. <Nata Linder NP - Last Filed: 03/25/21 02:26> Source: old records reviewed <Nata Linder NP - Last Filed: 03/25/21 02:26> Medical History: Medical History Substance abuse <Nata Linder NP - Last Filed: 03/25/21 02:26> Social History Social History: Social History Household Members: Unknown / Unable to assess Unable to assess alcohol history related to: Unknown Alcohol intake: unknown Patient Tobacco Use Status: Tobacco use Unknown Substance Use Type: Crack/Cocaine and Marijuana Advance Directives: No Advance Directives Information Provided: No service: No Current occupational status: unemployed <Nata Linder NP - Last Filed: 03/25/21 02:26> Physical Exam Vital Signs: Vital Signs: Last Vital Signs Temp 98.1 F 03/25/21 06:04 Pulse 78 03/25/21 06:04 Resp 16 03/25/21 06:04 BP 135/64 03/25/21 06:04 Pulse Ox 98 03/25/21 06:04 Body Mass Index 30.7 <Nata Linder NP - Last Filed: 03/25/21 02:26> Vital Signs: Last Vital Signs Temp 98.1 F 03/25/21 06:04 Pulse 78 03/25/21 06:04 Resp 16 03/25/21 06:04 BP 135/64 03/25/21 06:04 Pulse Ox 98 03/25/21 06:04 Body Mass Index 30.7 <Zaid Duron MD - Last Filed: 03/25/21 07:19> Appearance: Alert. Oriented to self. Visibly intoxicated. Eyes: Pupils equal, round and reactive to light. Dilated. ENT: Pharynx normal. Neck: Normal inspection. Neck supple. CVS: Normal heart rate and rhythm. Pulses normal. Respiratory: No respiratory distress. Breath sounds normal. Abdomen: Soft and nontender. Skin: Skin warm and dry. Normal skin color. Normal skin turgor. Extremities: No lower extremity edema. Gait well balanced well coordinated. Neuro: No motor deficit. No sensory deficit. Cranial nerves 2-12 intact. <Nata Linder NP - Last Filed: 03/25/21 02:26> Course Course Course Narrative: Patient presents via EMS visibly intoxicated. Not cooperative with interview at this time however is compliant with care. Easily redirectable. Plan of care is for [facility] consult. Tox screen positive for fentanyl and cocaine. Physician observation at this time. <Nata Linder NP - Last Filed: 03/25/21 02:26> Patient presents via EMS visibly intoxicated. Not cooperative with interview at this time however is compliant with care. Easily redirectable. Plan of care is for N consult. Tox screen positive for fentanyl and cocaine. Physician observation at this shauna e. 0309: Physician observation continued. Patient was evaluated by [facility]. The crisis counselor was able to talk to the patient. The patient has been using fentanyl and he believes this makes him after can appropriately. He has also been using heroin and cocaine daily. The patient is not suicidal or homicidal. He does want detox. The patient will be kept in the emergency department until the morning and then he will go to the [facility] Detox Living Room by cab. Examination: NAD, lungs clear, CV RRR, Abd nontender, Neuro intact. 0717: Physician observation ended at 0717. Patient remains calm and cooperative. He will be discharged to the [facility] detox living room program, exam: lungs clear, CV RRR, Abd nontender, Neuro intact. <Zaid Duron MD - Last Filed: 03/25/21 07:19> MDM - Psych Differential Diagnosis Differential diagnosis: Likely acute psychosis and substance abuse <Nata Linder NP - Last Filed: 03/25/21 02:26> Medical Records Attestation: I reviewed the patient's medical records. <Nata Linder NP - Last Filed: 03/25/21 02:26> Lab Data Attestation: I reviewed the patient's lab results. <Nata Linder NP - Last Filed: 03/25/21 02:26> Result diagrams: : 03/24/21 20:05 03/24/21 20:05 <Nata Linder NP - Last Filed: 03/25/21 02:26> Labs: Lab Results 03/24/21 03/24/21 03/24/21 Range/Units 16:27 16:27 17:40 WBC (4.8-10.8) X10*3/uL RBC (4.60-5.80) X10*6/uL Hgb (14.0-18.0) g/dl Hct (42-52) % MCV (80-98) fL MCH (27.0-33.0) pg MCHC (31.0-36.0) g/dl RDW (11.0-16.0) % Plt Count (160-400) X10*3/uL MPV (9.4-12.4) fL Immature Gran % (Auto) (0.0-0.4) % Neut % (Auto) (45-73) % Lymph % (Auto) (20-40) % Mcclain % (Auto) (2-11) % Eos % (Auto) (0-4) % Baso % (Auto) (0-2) % Lymph # (Auto) (1.2-4.9) X10*3/uL Mcclain # (Auto) (0.1-1.2) X10*3/uL Eos # (Auto) (0.0-0.4) X10*3/uL Baso # (Auto) (0.0-0.2) X10*3/uL Abs Immat Gran (auto) (0.00-0.03) X10*3/uL Absolute Neuts (auto) (2.0-8.3) X10*3/uL Absolute Nucleated RBC (0.0-0.012) X10*3/uL Nucleated RBC % (auto) (0.0-0.2) /100WBC Sodium (135-145) mmol/L Potassium (3.3-5.1) mmol/L Chloride (96-108) mmol/L Carbon Dioxide (22-29) mmol/L Anion Gap (12-20) BUN (9-16) mg/dL Creatinine (0.5-1.4) mg/dL Estim Creat Clear Calc Estimated GFR Random Glucose (60-115) mg/dL Calcium (8.4-10.2) mg/dL Urine Opiates Screen Not Detected (Not Detect) Urine Fentanyl Screen POSITIVE H (Not Detect) Ur Barbiturates Screen Not Detected (Not Detect) Ur Phencyclidine Scrn Not Detected (Not Detect) Ur Amphetamines Screen Not Detected (Not Detect) U Benzodiazepines Scrn Not Detected (Not Detect) Urine Cocaine Screen POSITIVE H (Not Detect) U Marijuana (THC) Screen Not Detected (Not Detect) Ethyl Alcohol < 10 mg/dL COVID-19 ([facility]) Negative (Negative) COVID-19 Clin Com See Note 03/24/21 03/24/21 03/24/21 Range/Units 20:05 20:05 20:05 WBC 7.5 (4.8-10.8) X10*3/uL RBC 4.00 L (4.60-5.80) X10*6/uL Hgb 11.0 L (14.0-18.0) g/dl Hct 35.3 L (42-52) % MCV 88.3 (80-98) fL MCH 27.5 (27.0-33.0) pg MCHC 31.2 (31.0-36.0) g/dl RDW 14.2 (11.0-16.0) % Plt Count 301 (160-400) X10*3/uL MPV 9.5 (9.4-12.4) fL Immature Gran % (Auto) 0.1 (0.0-0.4) % Neut % (Auto) 57.1 (45-73) % Lymph % (Auto) 29.8 (20-40) % Mcclain % (Auto) 11.4 H (2-11) % Eos % (Auto) 1.3 (0-4) % Baso % (Auto) 0.3 (0-2) % Lymph # (Auto) 2.2 (1.2-4.9) X10*3/uL Mcclain # (Auto) 0.9 (0.1-1.2) X10*3/uL Eos # (Auto) 0.1 (0.0-0.4) X10*3/uL Baso # (Auto) 0.0 (0.0-0.2) X10*3/uL Abs Immat Gran (auto) 0.01 (0.00-0.03) X10*3/uL Absolute Neuts (auto) 4.3 (2.0-8.3) X10*3/uL Absolute Nucleated RBC 0.000 (0.0-0.012) X10*3/uL Nucleated RBC % (auto) 0.0 (0.0-0.2) /100WBC Sodium 140 (135-145) mmol/L Potassium 4.6 (3.3-5.1) mmol/L Chloride 107 (96-108) mmol/L Carbon Dioxide 23 (22-29) mmol/L Anion Gap 15 (12-20) BUN 28 H (9-16) mg/dL Creatinine 1.64 H (0.5-1.4) mg/dL Estim Creat Clear Calc 70.6 Estimated GFR 46 Random Glucose 106 (60-115) mg/dL Calcium 8.9 D (8.4-10.2) mg/dL Urine Opiates Screen (Not Detect) Urine Fentanyl Screen (Not Detect) Ur Barbiturates Screen (Not Detect) Ur Phencyclidine Scrn (Not Detect) Ur Amphetamines Screen (Not Detect) U Benzodiazepines Scrn (Not Detect) Urine Cocaine Screen (Not Detect) U Marijuana (THC) Screen (Not Detect) Ethyl Alcohol < 10 mg/dL COVID-19 ([facility]) (Negative) COVID-19 Clin Com <Nata Linder, ERIKA - Last Filed: 03/25/21 02:26> Lab Results 03/24/21 03/24/21 03/24/21 Range/Units 16:27 16:27 17:40 WBC (4.8-10.8) X10*3/uL RBC (4.60-5.80) X10*6/uL Hgb (14.0-18.0) g/dl Hct (42-52) % MCV (80-98) fL MCH (27.0-33.0) pg MCHC (31.0-36.0) g/dl RDW (11.0-16.0) % Plt Count (160-400) X10*3/uL MPV (9.4-12.4) fL Immature Gran % (Auto) (0.0-0.4) % Neut % (Auto) (45-73) % Lymph % (Auto) (20-40) % Mcclain % (Auto) (2-11) % Eos % (Auto) (0-4) % Baso % (Auto) (0-2) % Lymph # (Auto) (1.2-4.9) X10*3/uL Mcclain # (Auto) (0.1-1.2) X10*3/uL Eos # (Auto) (0.0-0.4) X10*3/uL Baso # (Auto) (0.0-0.2) X10*3/uL Abs Immat Gran (auto) (0.00-0.03) X10*3/uL Absolute Neuts (auto) (2.0-8.3) X10*3/uL Absolute Nucleated RBC (0.0-0.012) X10*3/uL Nucleated RBC % (auto) (0.0-0.2) /100WBC Sodium (135-145) mmol/L Potassium (3.3-5.1) mmol/L Chloride (96-108) mmol/L Carbon Dioxide (22-29) mmol/L Anion Gap (12-20) BUN (9-16) mg/dL Creatinine (0.5-1.4) mg/dL Estim Creat Clear Calc Estimated GFR Random Glucose (60-115) mg/dL Calcium (8.4-10.2) mg/dL Urine Opiates Screen Not Detected (Not Detect) Urine Fentanyl Screen POSITIVE H (Not Detect) Ur Barbiturates Screen Not Detected (Not Detect) Ur Phencyclidine Scrn Not Detected (Not Detect) Ur Amphetamines Screen Not Detected (Not Detect) U Benzodiazepines Scrn Not Detected (Not Detect) Urine Cocaine Screen POSITIVE H (Not Detect) U Marijuana (THC) Screen Not Detected (Not Detect) Ethyl Alcohol < 10 mg/dL COVID-19 ([facility]) Negative (Negative) COVID-19 Clin Com See Note 03/24/21 03/24/21 03/24/21 Range/Units 20:05 20:05 20:05 WBC 7.5 (4.8-10.8) X10*3/uL RBC 4.00 L (4.60-5.80) X10*6/uL Hgb 11.0 L (14.0-18.0) g/dl Hct 35.3 L (42-52) % MCV 88.3 (80-98) fL MCH 27.5 (27.0-33.0) pg MCHC 31.2 (31.0-36.0) g/dl RDW 14.2 (11.0-16.0) % Plt Count 301 (160-400) X10*3/uL MPV 9.5 (9.4-12.4) fL Immature Gran % (Auto) 0.1 (0.0-0.4) % Neut % (Auto) 57.1 (45-73) % Lymph % (Auto) 29.8 (20-40) % Mcclain % (Auto) 11.4 H (2-11) % Eos % (Auto) 1.3 (0-4) % Baso % (Auto) 0.3 (0-2) % Lymph # (Auto) 2.2 (1.2-4.9) X10*3/uL Mcclain # (Auto) 0.9 (0.1-1.2) X10*3/uL Eos # (Auto) 0.1 (0.0-0.4) X10*3/uL Baso # (Auto) 0.0 (0.0-0.2) X10*3/uL Abs Immat Gran (auto) 0.01 (0.00-0.03) X10*3/uL Absolute Neuts (auto) 4.3 (2.0-8.3) X10*3/uL Absolute Nucleated RBC 0.000 (0.0-0.012) X10*3/uL Nucleated RBC % (auto) 0.0 (0.0-0.2) /100WBC Sodium 140 (135-145) mmol/L Potassium 4.6 (3.3-5.1) mmol/L Chloride 107 (96-108) mmol/L Carbon Dioxide 23 (22-29) mmol/L Anion Gap 15 (12-20) BUN 28 H (9-16) mg/dL Creatinine 1.64 H (0.5-1.4) mg/dL Estim Creat Clear Calc 70.6 Estimated GFR 46 Random Glucose 106 (60-115) mg/dL Calcium 8.9 D (8.4-10.2) mg/dL Urine Opiates Screen (Not Detect) Urine Fentanyl Screen (Not Detect) Ur Barbiturates Screen (Not Detect) Ur Phencyclidine Scrn (Not Detect) Ur Amphetamines Screen (Not Detect) U Benzodiazepines Scrn (Not Detect) Urine Cocaine Screen (Not Detect) U Marijuana (THC) Screen (Not Detect) Ethyl Alcohol < 10 mg/dL COVID-19 ([facility]) (Negative) COVID-19 Clin Com <Zaid Duron MD - Last Filed: 03/25/21 07:19> Discharge Plan Discharge Clinical Impression: Acute psychosis, Drug-induced psychotic disorder, Polysubstance abuse <Nata Linder NP - Last Filed: 03/25/21 02:26> Patient Disposition: Home, Self-Care <Nata Linder NP - Last Filed: 03/25/21 02:26> Additional Instructions: Your being discharged to the [facility] Living Room Program to get help with your polysubstance use disorder. Follow-up with your doctor in 1-2 weeks Please return to the emergency department if your symptoms get worse or if you develop any symptoms that are concerning to you. <Nata Linder NP - Last Filed: 03/25/21 02:26> Prescriptions: No Action No Known Home Meds RF: 0 <Nata Linder NP - Last Filed: 03/25/21 02:26>
[2021-03-24 16:13] VITALS: BP 114/80; PULSE 88; RESP 16; TEMP 36.7; O2SAT 98; BMI 30.7
[2021-03-24 16:53] LABS: COVID-19 Test Negative (Negative); IDNOW Serial# 9DD0AD1C
[2021-03-24 17:04] LABS: Amphetamine Screen Urine Not Detected (Not Detect); Barbiturates, Urine Not Detected (Not Detect); Benzodiazepines Screen Urine Not Detected (Not Detect); Cannabinoid Screen Urine Not Detected (Not Detect); Cocaine Screen Urine POSITIVE (Not Detect); Fentanyl, urine POSITIVE (Not Detect); Opiate Screen Urine Not Detected (Not Detect); Phencyclidine Screen Urine Not Detected (Not Detect)
[2021-03-24 18:22] LABS: Ethanol < 10 mg/dL
[2021-03-24 20:11] LABS: Basophils Percent Auto 0.3 % (0-2); Eosinophils Absolute Auto 0.1 X10*3/uL (0.0-0.4); Eosinophils Percent Auto 1.3 % (0-4); Hematocrit 35.3 % (42-52); Imm Gran Abs Auto 0.01 X10*3/uL (0.00-0.03); Imm Gran Pct Auto 0.1 % (0.0-0.4); Lymphocytes Absolute Auto 2.2 X10*3/uL (1.2-4.9); Lymphocytes Percent Auto 29.8 % (20-40); Mean Corpuscular HGB Conc 31.2 g/dl (31.0-36.0); Mean Corpuscular Hemoglobin 27.5 pg (27.0-33.0); Mean Corpuscular Volume 88.3 fL (80-98); Mean Platelet Volume 9.5 fL (9.4-12.4); Monocytes Absolute Auto 0.9 X10*3/uL (0.1-1.2); Monocytes Percent Auto 11.4 % (2-11); Neutrophils Absolute Auto 4.3 X10*3/uL (2.0-8.3); Neutrophils Percent Auto 57.1 % (45-73); Platelet Count 301 X10*3/uL (160-400); Red Cell Distribution Width 14.2 % (11.0-16.0); White Blood Count 7.5 X10*3/uL (4.8-10.8)
[2021-03-24 20:12] LABS: MANUAL DIFF FLAG NO
[2021-03-24 20:36] LABS: Ethanol < 10 mg/dL
[2021-03-24 20:38] LABS: Anion Gap 15 (12-20); Blood Urea Nitrogen 28 mg/dL (9-16); Calcium 8.9 mg/dL (8.4-10.2); Carbon Dioxide 23 mmol/L (22-29); Chloride 107 mmol/L (96-108); Creatinine Clr Calc Pharmacy 70.6; Estimated Glomerular Filt Rate 46; Glucose Random 106 mg/dL (60-115); Potassium 4.6 mmol/L (3.3-5.1); Sodium 140 mmol/L (135-145)
--- NOTE | 2021-03-25 03:17 | PC.NURSE ---
Patient has been hydrating adequately, using bathroom at least 3 times since 2099, patient got seen by N, patient was fully engaged, disposition is d/c living room and find detox bed from there, both patient and provider are agreement to the plan, denied distress at this time, will continue to monitor
[2021-03-25 06:04] VITALS: BP 135/64; PULSE 78; RESP 16; TEMP 36.7; O2SAT 98
--- NOTE | 2021-03-25 06:09 | PC.NURSE ---
Patient slept well, seen by N during overnight shift, patient will be discharged to living room in the morning, N will arrange the ride and ride will be here between 0715 and 0730, patient is ready and agreement with plan, patient during the shift hydrated adequately, elimination intact, will continue to monitor.
== END 2021-03-25 07:37 | disposition home or self-care (01) ==
PROVIDERS: Nurse Practitioner Family; Physician Assistant Medical; Emergency Provider Emergency Medicine Emergency Medical Services
DX: F23 Brief psychotic disorder (principal); F19.159 Other psychoactive substance abuse with psychoactive substance-induced psychotic disorder, unspecified; Z20.822 Contact with and (suspected) exposure to COVID-19
CPT/HCPCS: 36415; 80048; 80307; 82077; 85025; 87635; 99283; 99284

== ENCOUNTER 2021-03-31 19:24 | Emergency (ER) | payer MEDICAID, SELFPAY ==
[2021-03-31 19:32] VITALS: BP 100/60; PULSE 120; RESP 20; O2SAT 96; BMI 24.3
[2021-03-31 19:41] VITALS: BP 127/65
[2021-03-31 20:33] VITALS: BP 112/87; RESP 17; TEMP 46.1; O2SAT 96
[2021-03-31 21:17] VITALS: BP 126/66; PULSE 94; RESP 15
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
--- NOTE | 2021-03-31 21:36 | PC.NURSE ---
PT REQUESTING D/C PAPERWORK. AMBULATES INDEPENDENTLY W/STEADY GAIT, SPEAKS IN FULL CLEAR SENTENCES, WHILE SCREAMING AT THIS RN I WANT A [employer] CAB VOUCHER, YOU MOTHERFUCKERS DID THIS TO ME LAST TIME PA FEELS COMFORTABLY W/ D/C THIS PATIENT HOME AT THIS TIME.
[2021-03-31 21:45] LABS: Amphetamine Screen Urine Not Detected (Not Detect); Barbiturates, Urine Not Detected (Not Detect); Benzodiazepines Screen Urine Not Detected (Not Detect); Cannabinoid Screen Urine Not Detected (Not Detect); Cocaine Screen Urine POSITIVE (Not Detect); Fentanyl, urine POSITIVE (Not Detect); Opiate Screen Urine POSITIVE (Not Detect); Phencyclidine Screen Urine Not Detected (Not Detect)
== END 2021-03-31 21:42 | disposition home or self-care (01) ==
PROVIDERS: Physician Assistant; Emergency Provider Emergency Medicine
DX: F19.10 Other psychoactive substance abuse, uncomplicated (principal); F17.210 Nicotine dependence, cigarettes, uncomplicated
CPT/HCPCS: 80307; 99284

== ENCOUNTER 2021-04-12 19:09 | Emergency (ER) | payer MEDICAID, SELFPAY ==
--- NOTE | 2021-04-12 19:26 | PC.NURSE ---
PATIENT JUMPING OFF EMS STRETCHER, RUNNING TO THE BATHROOM, GETTING VERBALLY AGGRESSIVE WITH STAFF WHEN PATIENT WAS SEEN SITTING THE OPPOSITE WAY ON THE TOILET, SECURITY COMING TO OPEN THE DOOR WITH STAFF. ANTOINE FIBRE CEMENT MOULDER AT THE BATHROOM SEEING PATIENT. PATIENT JENNY WAITING TO HURT HIMSELF OR ANY ONE ELSE, STATING HE DID NOT WANT TO COME IN SOMEONE ELSE CALLED. PATIENT IS ALERT AND ABLE TO ANSWER QUESTIONS. AMBULATING STEADILY. VERBALLY DISCHARGED BY ANTOINE JAMES.
--- NOTE | 2021-04-12 19:27 | ED_ITS ---
HPI - Alcohol General Stated Complaint: etoh/crisis Source: patient and EMS Mode of arrival: EMS Limitations: no limitations History of Present Illness HPI narrative: 40-year-old male presents via EMS for ETOH intoxication. He is verbally aggressive and assaultive, jumped off the stretcher, demanding to use the bathroom. Patient would not answer any questions at this time. He has a known history of aggression and violence toward staffing. MD complaint: alcohol intoxication Last drink: Hours (ago) (Within the hour of arrival) Chronic alcohol use: Yes Previous visits for alcohol intoxication: Yes Recent trauma: No Associated symptoms: denies other symptoms Related Data Home Medications Medication Instructions Recorded Confirmed No Known Home Meds 03/16/21 03/16/21 Allergies Allergy/AdvReac Type Severity Reaction Status Date / Time No Known Allergies Allergy Verified 03/16/21 05:57 Review of Systems Review of Systems: Patient refuses to answer any questions. Yes all other systems are reviewed and are negative PMFSH Past Medical History Attestation statement: The following information was validated with the patient. Source: old records reviewed Medical History Substance abuse Social History Social History Household Members: Unknown / Unable to assess Unable to assess alcohol history related to: Unknown Alcohol intake: current Patient Tobacco Use Status: Current someday Tobacco user Substance Use Type: Crack/Cocaine, Heroin and Marijuana service: No Current occupational status: unemployed Physical Exam Vital Signs: Appearance: Alert. Oriented X3. Verbally aggressive. Eyes: Pupils equal, round and reactive to light. ENT: Pharynx normal. Neck: Normal inspection. Neck supple. CVS: Vital signs within normal limits per EMS. Respiratory: No respiratory distress. Abdomen: Soft and nontender. Skin: Skin warm and dry. Normal skin color. Normal skin turgor. Extremities: Moves all extremities against resistance. Gait well balanced well coordinated. Neuro: No motor deficit. No sensory deficit. Course Course Course Narrative: 40-year-old male presents via EMS for aggression. They report that he has been using alcohol and Xanax, also has a history of crack cocaine abuse. Patient is verbally assaultive, not answering any questions, and locked himself into the bathroom. Security was obtained to have him removed from the bathroom. Patient continued to verbally assault all staff. Patient was discharged as he did not report any medical conditions, denied SI and HI. Belén barahona has a longstanding history of drug abuse and has been extraordinarily verbally aggressive and assaultive towards staff in the past. MDM - Alcohol MDM Narrative Medical decision making narrative: Substance abuse Differential Diagnosis Differential diagnosis: Likely alcohol dependence Discharge Plan Discharge Clinical Impression: Active substance abuse Patient Disposition: Home, Self-Care Instructions: Mood Disorders (ED), Polysubstance Abuse (ED) Additional Instructions: Consider detox. Prescriptions: No Action No Known Home Meds RF: 0
== END 2021-04-12 19:53 | disposition home or self-care (01) ==
LOC: HO.ED 19:44
PROVIDERS: Emergency Provider Emergency Medicine
DX: F19.10 Other psychoactive substance abuse, uncomplicated (principal); R45.6 Violent behavior

== ENCOUNTER 2021-04-16 02:29 | Emergency (ER) | payer MEDICAID, SELFPAY ==
--- NOTE | 2021-04-16 02:34 | ED.ALCOHOL ---
HPI - Alcohol General Stated Complaint: ? UNDER THE INFLUENCE OF ETOH,A&O PER EMS Source: patient and EMS Mode of arrival: EMS Limitations: no limitations History of Present Illness HPI narrative: 40-year-old male well known to this facility presents via EMS for alcohol intoxication. Patient is jumping off the stretcher as soon as he enters into this building, and is verbally aggressive towards all staff. MD complaint: alcohol intoxication Chronic alcohol use: Yes Previous visits for alcohol intoxication: Yes Recent trauma: No Associated symptoms: denies other symptoms Treatments prior to arrival: none Related Data Home Medications Medication Instructions Recorded Confirmed No Known Home Meds 03/16/21 03/16/21 Allergies Allergy/AdvReac Type Severity Reaction Status Date / Time No Known Allergies Allergy Verified 03/16/21 05:57 Review of Systems Review of Systems: Constitutional: No Fever, No Chills ENT/Mouth: No sore throat, No Rhinorrhea Eyes: No Eye Pain, No Swelling, No Redness Cardiovascular: No Chest Pain, No SOB Respiratory: No Cough, No Sputum Gastrointestinal: No Nausea, No Vomiting, No Diarrhea, No abdominal Pain Genitourinary: No Dysuria, No Hematuria Musculoskeletal: No joint pain, No Myalgias, No Joint Swelling Skin: No Skin Lesions, No rash Neuro: No Weakness, No Numbness, No Loss of Consciousness, No Dizziness, No Headache Psych: Positive alcohol intoxication, No Anxiety, No Depression, No SI/HI/AH/VH Heme/Lymph: No Bruising, No Bleeding,No Lymphadenopathy Endocrine: No Polyuria, No Polydipsia Yes all other systems are reviewed and are negative [facility] Past Medical History Attestation statement: The following information was validated with the patient. Source: old records reviewed Medical History Substance abuse Social History Social History Household Members: Unknown / Unable to assess Unable to assess alcohol history related to: Unknown Alcohol intake: current Patient Tobacco Use Status: Current someday Tobacco user Substance Use Type: Crack/Cocaine, Heroin and Marijuana Advance Directives: No Advance Directives Information Provided: No service: No Current occupational status: unemployed Physical Exam Vital Signs: Appearance: Alert. Oriented X3. No acute distress. Angry and verbally aggressive. Eyes: Pupils equal, round and reactive to light. ENT: Pharynx normal. Neck: Normal inspection. Neck supple. CVS: Normal heart rate and rhythm. Pulses normal. Respiratory: No respiratory distress. Breath sounds normal. Abdomen: Soft and nontender. Skin: Skin warm and dry. Normal skin color. Normal skin turgor. Extremities: Gait well balanced well coordinated. Neuro: No motor deficit. No sensory deficit. Course Course Course Narrative: 40-year-old male presents with alcohol intoxication. Was found walking on the street without shoes. Suspected to use heroin and cocaine however no Narcan given. Patient denies drug use, states that he drinks alcohol earlier today. Does not want to be here, denies suicidal and homicidal ideation. He does understand that he does not have any shoes on but would like to leave at this time. Patient is verbally aggressive, swearing at all staff, and unable to be redirected. Per his usual, he spent some time in the bathroom prior to his discharge. Patient extraordinarily verbally aggressive to all staff through out his entire duration. MDM - Alcohol MDM Narrative Medical decision making narrative: Suspected drug use. Differential Diagnosis Differential diagnosis: Likely alcohol intoxication Medical Records Attestation: I reviewed the patient's medical records. Discharge Plan Discharge Clinical Impression: Polysubstance abuse Patient Disposition: Home, Self-Care Instructions: Polysubstance Abuse (ED) Additional Instructions: Consider detox. Thank you for choosing this emergency department for evaluation. Please follow-up with primary care physician as needed. Return to the emergency department for any new, concerning, or worsening symptoms. Prescriptions: No Action No Known Home Meds RF: 0
--- NOTE | 2021-04-16 02:42 | PC.NURSE ---
PATIENT ARRIVED BY EMS JUMPING OFF EMS STRETCHER, STATING I AM GOING TO THE BATHROOM, ANTOINE TRANSPORTATION ANALYST AT EMS STRETCHER BEDSIDE TO EVALUATE PATIENT. PATIENT IS ALERT AND ORIENTED, AMBULATING STEADILY WITH NO DISTRESS NOTED. PATIENT JENNY USING DRUGS TONIGHT, DENIES SI OR HI. PATIENT IS CLINICALLY SOBER PER PROVIDER. PATIENT ASKING TO BE DISCHARGED BY PROVIDER. PATIENT AMBULATING STEADILY TOT HTE BATHROOM AFTER USING THAT BATHROOM TALKING TO THE PROVIDER AND PATIENT IS A VERBAL DISCHARGE BY ANTOINE JAMES. SECURITY AT THE BATHROOM DOOR FOR ESCORT FROM DEPARTMENT.
== END 2021-04-16 02:45 | disposition home or self-care (01) ==
PROVIDERS: Emergency Provider Student in an Organized Health Care Education/Training Program
DX: F19.10 Other psychoactive substance abuse, uncomplicated (principal); R45.6 Violent behavior
CPT/HCPCS: 99282

== ENCOUNTER 2021-04-30 19:13 | Emergency (ER) | payer MEDICAID, SELFPAY ==
[2021-04-30 19:21] VITALS: BP 92/71; PULSE 94; RESP 18; TEMP 37.1; O2SAT 95; BMI 23.0
--- NOTE | 2021-04-30 19:44 | ED.GENADULT ---
HPI - General Adult General Chief complaint: ETOH/Substance Use Stated complaint: ? PCP USE Time Seen by Provider: 04/30/21 19:34 Source: patient and old records reviewed Limitations: no limitations History of Present Illness HPI narrative: Patient presents due to agitation. Patient is well known to this emergency department. He has a history of presenting after PCP use. He presents today in a similar fashion. He is very agitated and unable to stop moving although he is cooperative. He denies any physical complaints. He denies any suicidal or homicidal ideation. He states he could rest while or probably feel better. Related Data Home Medications Medication Instructions Recorded Confirmed No Known Home Meds 03/16/21 03/16/21 Allergies Allergy/AdvReac Type Severity Reaction Status Date / Time No Known Allergies Allergy Verified 03/16/21 05:57 Review of Systems Constitutional: Constitutional: Denies headache(s) ENT: Denies headache(s) Cardiovascular: Comments: No chest pain Respiratory: Comments: No difficulty breathing Gastrointestinal: Comments: Complains of being hungry but denies vomiting or abdominal pain Musculoskeletal: Comments: Denies injury Neurologic: Denies headache(s) Psychiatric: Comments: Denies suicidal or homicidal ideation states he feels like he just can not stop moving PMFSH Past Medical History Medical History Substance abuse Social History Social History Household Members: Unknown / Unable to assess Unable to assess alcohol history related to: Unknown Alcohol intake: current Patient Tobacco Use Status: Current someday Tobacco user Substance Use Type: Crack/Cocaine, Heroin and Marijuana Advance Directives: No Advance Directives Information Provided: Yes service: No Current occupational status: unemployed Physical Exam Vital Signs: Vital Signs: Last Vital Signs Temp 98.7 F 04/30/21 19: Pulse 94 04/30/21 19:21 Resp 18 04/30/21 19:21 BP 92/71 04/30/21 19:21 Pulse Ox 95 04/30/21 19:21 Body Mass Index 23.0 Const: Other: Patient appears agitated and unable to stop moving. He is constantly standing up sitting down and lying down. He is swinging his arms back and forth. He is cooperative however, and nonthreatening HENMT: Other: Normocephalic atraumatic Neck: Other: Full range of motion Resp: Other: No respiratory distress Skin: Other: No lacerations abrasions or ecchymosis Neuro: Other: Moves all 4 extremities without difficulty Psych: Other: Speech is pressured. He is very restless as described above. He states he feels like he just can not stop moving. Denies suicidal and homicidal ideation. Difficult to assess for internal stimuli. Per staff the know him well, this is his baseline when he has presented in the past. Course Course Course Narrative: PCP intoxication Psychosis Stimulant intoxication Review of old records shows patient had renal insufficiency during prior visits. Will reorder electrolytes. Urine tox screen pending with strong suspicion of recurrence PCP use 8:24 p.m.. Urine toxicology is positive for opiates, fentanyl, and cocaine. Not PCP. 12:37 p.m.. Patient was treated with 2 mg of Ativan was able to get some sleep. He is improving and should be ready for discharge soon Medical Decision Making Lab Data Result diagrams: 05/01/21 00:20 05/01/21 00:20 Labs: Lab Results 04/30/21 04/30/21 04/30/21 Range/Units 19:32 19:32 19:46 WBC (4.8-10.8) X10*3/uL RBC (4.60-5.80) X10*6/uL Hgb (14.0-18.0) g/dl Hct (42-52) % MCV (80-98) fL MCH (27.0-33.0) pg MCHC (31.0-36.0) g/dl RDW (11.0-16.0) % Plt Count (160-400) X10*3/uL MPV (9.4-12.4) fL Immature Gran % (Auto) (0.0-0.4) % Neut % (Auto) (45-73) % Lymph % (Auto) (20-40) % [place] % (Auto) (2-11) % Eos % (Auto) (0-4) % Baso % (Auto) (0-2) % Lymph # (Auto) (1.2-4.9) X10*3/uL [place] # (Auto) (0.1-1.2) X10*3/uL Eos # (Auto) (0.0-0.4) X10*3/uL Baso # (Auto) (0.0-0.2) X10*3/uL Abs Immat Gran (auto) (0.00-0.03) X10*3/uL Absolute Neuts (auto) (2.0-8.3) X10*3/uL Absolute Nucleated RBC (0.0-0.012) X10*3/uL Nucleated RBC % (auto) (0.0-0.2) /100WBC Urine Color YELLOW Urine Appearance CLEAR Urine pH 5.5 (5.0-8.0) Ur Specific [place] >= 1.030 H (1.005-1.025) Urine Protein 1+ H (NEG-TRACE) MG/DL Urine Glucose (UA) NEG (NEG) MG/DL Urine Ketones NEG (NEG) MG/DL Urine Blood 1+ H (NEG) Urine Nitrite NEG (NEG) Ur Leukocyte Esterase NEG (NEG) Urine RBC 0-2 (0) /HPF Urine WBC 0-2 (0-4) /HPF Ur Squamous Epith Cells TRACE /LPF Urine Bacteria NONE /LPF Hyaline Casts 5-9 /LPF Urine Mucus 3+ /LPF Urine Sperm NOTED Urine Opiates Screen POSITIVE H (Not Detect) Urine Fentanyl Screen POSITIVE H (Not Detect) Ur Barbiturates Screen Not Detected (Not Detect) Ur Phencyclidine Scrn Not Detected (Not Detect) Ur Amphetamines Screen Not Detected (Not Detect) U Benzodiazepines Scrn Not Detected (Not Detect) Urine Cocaine Screen POSITIVE H (Not Detect) U Marijuana (THC) Screen Not Detected (Not Detect) COVID-19 ([facility]) Negative (Negative) COVID-19 Clin Com See Note 05/01/21 Range/Units 00:20 WBC 7.0 (4.8-10.8) X10*3/uL RBC 4.25 L (4.60-5.80) X10*6/uL Hgb 11.8 L (14.0-18.0) g/dl Hct 38.0 L (42-52) % MCV 89.4 (80-98) fL MCH 27.8 (27.0-33.0) pg MCHC 31.1 (31.0-36.0) g/dl RDW 14.0 (11.0-16.0) % Plt Count 310 (160-400) X10*3/uL MPV 9.8 (9.4-12.4) fL Immature Gran % (Auto) 0.1 (0.0-0.4) % Neut % (Auto) 60.2 (45-73) % Lymph % (Auto) 26.6 (20-40) % [place] % (Auto) 11.5 H (2-11) % Eos % (Auto) 1.3 (0-4) % Baso % (Auto) 0.3 (0-2) % Lymph # (Auto) 1.9 (1.2-4.9) X10*3/uL [place] # (Auto) 0.8 (0.1-1.2) X10*3/uL Eos # (Auto) 0.1 (0.0-0.4) X10*3/uL Baso # (Auto) 0.0 (0.0-0.2) X10*3/uL Abs Immat Gran (auto) 0.01 (0.00-0.03) X10*3/uL Absolute Neuts (auto) 4.2 (2.0-8.3) X10*3/uL Absolute Nucleated RBC 0.000 (0.0-0.012) X10*3/uL Nucleated RBC % (auto) 0.0 (0.0-0.2) /100WBC Urine Color Urine Appearance Urine pH (5.0-8.0) Ur Specific [place] (1.005-1.025) Urine Protein (NEG-TRACE) MG/DL Urine Glucose (UA) (NEG) MG/DL Urine Ketones (NEG) MG/DL Urine Blood (NEG) Urine Nitrite (NEG) Ur Leukocyte Esterase (NEG) Urine RBC (0) /HPF Urine WBC (0-4) /HPF Ur Squamous Epith Cells /LPF Urine Bacteria /LPF Hyaline Casts /LPF Urine Mucus /LPF Urine Sperm Urine Opiates Screen (Not Detect) Urine Fentanyl Screen (Not Detect) Ur Barbiturates Screen (Not Detect) Ur Phencyclidine Scrn (Not Detect) Ur Amphetamines Screen (Not Detect) U Benzodiazepines Scrn (Not Detect) Urine Cocaine Screen (Not Detect) U Marijuana (THC) Screen (Not Detect) COVID-19 ([facility]) (Negative) COVID-19 Clin Com Discharge Plan Discharge Clinical Impression: Cocaine abuse with cocaine-induced mood disorder, Opioid abuse with intoxication Patient Disposition: Home, Self-Care Instructions: Cocaine Abuse (ED), Polysubstance Abuse (ED), Opioid Use Disorder (ED) Prescriptions: No Action No Known Home Meds RF: 0
[2021-04-30 19:57] LABS: Appearance Urine CLEAR; Color Urine YELLOW; Glucose Urine UA NEG (NEG); Leukocyte Esterase Urine NEG (NEG); Nitrite Urine NEG (NEG); PH 5.5 (5.0-8.0); Specific Gravity - Urine >= 1.030 (1.005-1.025); UACC Culture Trigger NO; Urine Blood 1+ (NEG); Urine Ketones NEG (NEG); Urine Protein 1+ MG/DL (NEG-TRACE)
[2021-04-30 20:08] LABS: Mucus Urine 3+ /LPF; RBC Urine 0-2 /HPF (0); Sperm Urine NOTED; Squamous Epithelial Cell Urine TRACE /LPF; WBC Urine 0-2 /HPF (0-4)
[2021-04-30 20:13] LABS: Amphetamine Screen Urine Not Detected (Not Detect); Barbiturates, Urine Not Detected (Not Detect); Benzodiazepines Screen Urine Not Detected (Not Detect); Cannabinoid Screen Urine Not Detected (Not Detect); Cocaine Screen Urine POSITIVE (Not Detect); Fentanyl, urine POSITIVE (Not Detect); Opiate Screen Urine POSITIVE (Not Detect); Phencyclidine Screen Urine Not Detected (Not Detect)
[2021-04-30 20:19] LABS: COVID-19 Test Negative (Negative)
[2021-04-30] MEDS: LORazepam 1 MG TABLET 2 MG PO (21:23)
[2021-05-01 00:31] LABS: Basophils Percent Auto 0.3 % (0-2); Eosinophils Absolute Auto 0.1 X10*3/uL (0.0-0.4); Eosinophils Percent Auto 1.3 % (0-4); Hemoglobin 11.8 g/dl (14.0-18.0); Imm Gran Abs Auto 0.01 X10*3/uL (0.00-0.03); Imm Gran Pct Auto 0.1 % (0.0-0.4); Lymphocytes Absolute Auto 1.9 X10*3/uL (1.2-4.9); Lymphocytes Percent Auto 26.6 % (20-40); MANUAL DIFF FLAG NO; Mean Corpuscular HGB Conc 31.1 g/dl (31.0-36.0); Mean Corpuscular Hemoglobin 27.8 pg (27.0-33.0); Mean Corpuscular Volume 89.4 fL (80-98); Mean Platelet Volume 9.8 fL (9.4-12.4); Monocytes Absolute Auto 0.8 X10*3/uL (0.1-1.2); Monocytes Percent Auto 11.5 % (2-11); Neutrophils Absolute Auto 4.2 X10*3/uL (2.0-8.3); Neutrophils Percent Auto 60.2 % (45-73); Platelet Count 310 X10*3/uL (160-400); Red Blood Count 4.25 X10*6/uL (4.60-5.80)
[2021-05-01 01:35] VITALS: BP 107/76; PULSE 70; RESP 18; TEMP 36.8; O2SAT 98
[2021-05-01 02:04] LABS: Alanine Aminotransferase 35 U/L (0-40); Albumin Level 3.8 g/dL (3.5-5.0); Alkaline Phosphatase 95 U/L (39-117); Anion Gap 14 (12-20); Aspartate Amino Transferase 52 U/L (5-37); Bilirubin Total 0.8 mg/dL (0.0-1.0); Blood Urea Nitrogen 26 mg/dL (9-16); Calcium 9.3 mg/dL (8.4-10.2); Carbon Dioxide 25 mmol/L (22-29); Chloride 107 mmol/L (96-108); Creatinine Clr Calc Pharmacy 53.2; Estimated Glomerular Filt Rate 37; Glucose Random 117 mg/dL (60-115); Potassium 4.6 mmol/L (3.3-5.1); Sodium 141 mmol/L (135-145); Total Protein 6.8 g/dL (6.5-8.0)
--- NOTE | 2021-05-01 05:54 | PC.NURSE ---
Patient slept through the night, no distress observed/reported, patient was fidgety, restless, due to poly-substance abuse, patient receive Ativan 2 mg with positive effect, patient is ready to be discharged, will continue to monitor.
== END 2021-05-01 08:30 | disposition home or self-care (01) ==
PROVIDERS: Emergency Provider Emergency Medicine
DX: F14.14 Cocaine abuse with cocaine-induced mood disorder (principal); F11.129 Opioid abuse with intoxication, unspecified; Z20.822 Contact with and (suspected) exposure to COVID-19; F12.10 Cannabis abuse, uncomplicated; Z71.51 Drug abuse counseling and surveillance of drug abuser; Z72.89 Other problems related to lifestyle; Z79.899 Other long term (current) drug therapy
CPT/HCPCS: 36415; 80053; 80307; 81001; 85025; 87635; 99283; 99284

== ENCOUNTER 2021-05-04 20:59 | Inpatient (IN) | payer MEDICAID, SELFPAY ==
[2021-05-04 21:07] VITALS: BP 104/50; PULSE 108; PULSE 114; RESP 20; O2SAT 99; BMI 22.4
[2021-05-04 21:12] LABS: Glucose, Whole Blood 53 mg/dL (60-115)
--- NOTE | 2021-05-04 21:17 | PC.NURSE ---
Pt provided with food/drink, repeat POC 90 mg/dl. Pt awake, able to answer questions but thrashing in bed, unable to sit still, hitting himself in the head. Pt compliant with medical procedures but must be constantly prompted. This RN to discuss 1:1 with charge due to SA and fall risk.
[2021-05-04 21:19] LABS: Glucose, Whole Blood 90 mg/dL (60-115)
--- NOTE | 2021-05-04 21:32 | ED_ITS ---
HPI - Altered Mental Status General Chief Complaint: ETOH/Substance Use Stated Complaint: AMS HYPOGLYCEMIA Time Seen by Provider: 05/04/21 21:32 Source: EMS Mode of arrival: EMS Limitations: altered mental status History of Present Illness HPI narrative: patient known well to us, frequent use of PCP. presents with b izarre behavior and movements hitting himself complaint: altered mental status Onset (ago): hour(s) Severity: similar to previous episodes Context: drug abuse Related Data Allergies Allergy/AdvReac Type Severity Reaction Status Date / Time No Known Allergies Allergy Verified 05/04/21 21:33 Review of Systems Review of Systems: Yes Unobtainable due to mental status PMFSH Social History Social History Advance Directives: No Advance Directives Information Provided: No Physical Exam Vital Signs: Vital Signs: Last Vital Signs Pulse 72 05/05/21 01:21 Resp 14 05/05/21 01:21 BP 115/52 L 05/05/21 01:21 Pulse Ox 96 05/05/21 01:21 Body Mass Index 22.4 Course Reevaluation(s) Reevaluation #1: Patient CPK increasing although his renal function has improved will admit Time: 02:01 MDM - Altered Mental Status Lab Data Result diagrams: 05/04/21 22:07 05/05/21 01:20 Labs: Lab Results 05/04/21 05/04/21 05/04/21 Range/Units 21:06 21:15 22:07 WBC (4.8-10.8) X10*3/uL RBC (4.60-5.80) X10*6/uL Hgb (14.0-18.0) g/dl Hct (42-52) % MCV (80-98) fL MCH (27.0-33.0) pg MCHC (31.0-36.0) g/dl RDW (11.0-16.0) % Plt Count (160-400) X10*3/uL MPV (9.4-12.4) fL Immature Gran % (Auto) (0.0-0.4) % Neut % (Auto) (45-73) % Lymph % (Auto) (20-40) % [place] % (Auto) (2-11) % Eos % (Auto) (0-4) % Baso % (Auto) (0-2) % Lymph # (Auto) (1.2-4.9) X10*3/uL [place] # (Auto) (0.1-1.2) X10*3/uL Eos # (Auto) (0.0-0.4) X10*3/uL Baso # (Auto) (0.0-0.2) X10*3/uL Abs Immat Gran (auto) (0.00-0.03) X10*3/uL Absolute Neuts (auto) (2.0-8.3) X10*3/uL Absolute Nucleated RBC (0.0-0.012) X10*3/uL Nucleated RBC % (auto) (0.0-0.2) /100WBC Sodium 144 (135-145) mmol/L Potassium 4.2 (3.3-5.1) mmol/L Chloride 107 (96-108) mmol/L Carbon Dioxide 28 (22-29) mmol/L Anion Gap 13 (12-20) BUN 29 H (9-16) mg/dL Creatinine 2.05 H (0.5-1.4) mg/dL Estim Creat Clear Calc 51.1 Estimated GFR 36 POC Glucose 53 L* 90 (60-115) mg/dL Random Glucose 145 H (60-115) mg/dL Calcium 8.9 (8.4-10.2) mg/dL Total Bilirubin 1.0 (0.0-1.0) mg/dL AST 71 H (5-37) U/L ALT 40 (0-40) U/L Alkaline Phosphatase 105 (39-117) U/L Total Creatine Kinase 1796 H (38-174) U/L Total Protein 6.7 (6.5-8.0) g/dL Albumin 3.9 (3.5-5.0) g/dL Salicylates < 5.0 L (15-30) mg/dL Acetaminophen < 1 (<30) mcg/mL Ethyl Alcohol mg/dL 05/04/21 05/04/21 05/05/21 Range/Units 22:07 22:07 01:20 WBC 15.0 H (4.8-10.8) X10*3/uL RBC 4.02 L (4.60-5.80) X10*6/uL Hgb 11.3 L (14.0-18.0) g/dl Hct 35.7 L (42-52) % MCV 88.8 (80-98) fL MCH 28.1 (27.0-33.0) pg MCHC 31.7 (31.0-36.0) g/dl RDW 13.7 (11.0-16.0) % Plt Count 268 (160-400) X10*3/uL MPV 9.6 (9.4-12.4) fL Immature Gran % (Auto) 0.5 H (0.0-0.4) % Neut % (Auto) 84.6 H (45-73) % Lymph % (Auto) 7.7 L (20-40) % [place] % (Auto) 6.5 (2-11) % Eos % (Auto) 0.3 (0-4) % Baso % (Auto) 0.4 (0-2) % Lymph # (Auto) 1.2 (1.2-4.9) X10*3/uL [place] # (Auto) 1.0 (0.1-1.2) X10*3/uL Eos # (Auto) 0.1 (0.0-0.4) X10*3/uL Baso # (Auto) 0.1 (0.0-0.2) X10*3/uL Abs Immat Gran (auto) 0.07 H (0.00-0.03) X10*3/uL Absolute Neuts (auto) 12.7 H (2.0-8.3) X10*3/uL Absolute Nucleated RBC 0.000 (0.0-0.012) X10*3/uL Nucleated RBC % (auto) 0.0 (0.0-0.2) /100WBC Sodium 141 (135-145) mmol/L Potassium 4.0 (3.3-5.1) mmol/L Chloride 112 H (96-108) mmol/L Carbon Dioxide 23 (22-29) mmol/L Anion Gap 10 L (12-20) BUN 28 H (9-16) mg/dL Creatinine 1.50 H (0.5-1.4) mg/dL Estim Creat Clear Calc 69.9 Estimated GFR 51 POC Glucose (60-115) mg/dL Random Glucose 98 (60-115) mg/dL Calcium 7.9 L D (8.4-10.2) mg/dL Total Bilirubin (0.0-1.0) mg/dL AST (5-37) U/L ALT (0-40) U/L Alkaline Phosphatase (39-117) U/L Total Creatine Kinase 2133 H (38-174) U/L Total Protein (6.5-8.0) g/dL Albumin (3.5-5.0) g/dL Salicylates (15-30) mg/dL Acetaminophen (<30) mcg/mL Ethyl Alcohol < 10 mg/dL Discharge Plan Discharge Clinical Impression: Rhabdomyolysis, Acute renal injury Patient Disposition: Admitted As Inpatient
[2021-05-04] MEDS: Haloperidol Lactate 5 MG/ML VIAL 10 MG IM (21:42)
[2021-05-04] MEDS: LORazepam 2 MG/ML VIAL 4 MG IM (21:42)
--- NOTE | 2021-05-04 21:43 | PC.NURSE ---
at bedside. Pt medicated per OCT. Sitter at bedside for 1:1. Plan for labs once pt is able to cooperate.
--- NOTE | 2021-05-04 21:54 | PC.NURSE ---
Pt sleeping in bed at this time. Sitter remains at bedside. Plan to obtain labs shortly.
[2021-05-04 22:07] VITALS: BP 111/38; PULSE 89; RESP 14; O2SAT 93
[2021-05-04 22:13] LABS: Basophils Absolute Auto 0.1 X10*3/uL (0.0-0.2); Basophils Percent Auto 0.4 % (0-2); Eosinophils Absolute Auto 0.1 X10*3/uL (0.0-0.4); Eosinophils Percent Auto 0.3 % (0-4); Hematocrit 35.7 % (42-52); Hemoglobin 11.3 g/dl (14.0-18.0); Imm Gran Abs Auto 0.07 X10*3/uL (0.00-0.03); Imm Gran Pct Auto 0.5 % (0.0-0.4); Lymphocytes Absolute Auto 1.2 X10*3/uL (1.2-4.9); Lymphocytes Percent Auto 7.7 % (20-40); MANUAL DIFF FLAG NO; Mean Corpuscular HGB Conc 31.7 g/dl (31.0-36.0); Mean Corpuscular Hemoglobin 28.1 pg (27.0-33.0); Mean Corpuscular Volume 88.8 fL (80-98); Mean Platelet Volume 9.6 fL (9.4-12.4); Monocytes Percent Auto 6.5 % (2-11); Neutrophils Absolute Auto 12.7 X10*3/uL (2.0-8.3); Neutrophils Percent Auto 84.6 % (45-73); Platelet Count 268 X10*3/uL (160-400); Red Blood Count 4.02 X10*6/uL (4.60-5.80); Red Cell Distribution Width 13.7 % (11.0-16.0)
[2021-05-04 22:30] LABS: Ethanol < 10 mg/dL
[2021-05-04 22:36] VITALS: BP 111/38; PULSE 86; RESP 12; O2SAT 88
[2021-05-04 22:36] LABS: Acetaminophen LAB < 1 mcg/mL (<30); Alanine Aminotransferase 40 U/L (0-40); Albumin Level 3.9 g/dL (3.5-5.0); Alkaline Phosphatase 105 U/L (39-117); Anion Gap 13 (12-20); Aspartate Amino Transferase 71 U/L (5-37); Blood Urea Nitrogen 29 mg/dL (9-16); Calcium 8.9 mg/dL (8.4-10.2); Carbon Dioxide 28 mmol/L (22-29); Chloride 107 mmol/L (96-108); Creatinine Clr Calc Pharmacy 51.1; Estimated Glomerular Filt Rate 36; Glucose Random 145 mg/dL (60-115); Potassium 4.2 mmol/L (3.3-5.1); Salicylate < 5.0 mg/dL (15-30); Sodium 144 mmol/L (135-145); Total Protein 6.7 g/dL (6.5-8.0)
[2021-05-04 22:37] VITALS: O2SAT 96
[2021-05-04] MEDS: 0.9 % Sodium Chloride 2,313.33 ML 2313.33 ML IV (23:26)
[2021-05-04 23:27] VITALS: BP 101/43; PULSE 78; RESP 14; O2SAT 98
--- NOTE | 2021-05-04 23:27 | PC.NURSE ---
Pt remains asleep in bed at this time. IV established, IVF infusing per MAR. VSS. Continue to monitor.
[2021-05-05] VITALS (7 sets, daily range): BP systolic 115–156; BP diastolic 52–93; PULSE 60–76; RESP 14–18; TEMP 36.7–37.1; O2SAT 96–100
[2021-05-05] MEDS: 0.9 % Sodium Chloride 1,000 ML 999 ML IVCONT ×2 (01:22→02:03)
--- NOTE | 2021-05-05 01:22 | PC.NURSE ---
Pt remains asleep in bed at this time. Labs obtained and sent. IVF infusing per MAR. Plan to reassess pt readiness for discharge once awake.
[2021-05-05 01:56] LABS: Anion Gap 10 (12-20); Blood Urea Nitrogen 28 mg/dL (9-16); Calcium 7.9 mg/dL (8.4-10.2); Carbon Dioxide 23 mmol/L (22-29); Chloride 112 mmol/L (96-108); Creatinine Clr Calc Pharmacy 69.9; Estimated Glomerular Filt Rate 51; Glucose Random 98 mg/dL (60-115); Sodium 141 mmol/L (135-145)
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
--- NOTE | 2021-05-05 02:12 | PC.NURSE ---
This nurse attempted to perform med rec. PT unable to confirm home meds. Per medical record, no recent meds picked up from pharmacy.
--- NOTE | 2021-05-05 02:24 | PC.NURSE ---
Hospitalist at bed side for primary eval. PT was bladder scanned as he has not voided once during this visit. Scan read 450 mL in bladder. Hospitalist notified. Plan is to rescan bladder in one hour, if greater than 450 mL PT will need to have straight cath.
[2021-05-05 02:29] LABS: COVID-19 Test Negative (Negative); IDNOW Serial# 9DD0AD1C
[2021-05-05] MEDS: 0.9 % Sodium Chloride 1,000 ML 100 ML IVCONT ×2 (03:02→12:35)
--- NOTE | 2021-05-05 03:06 | PC.NURSE ---
PT voided using bedside urinal with prompting. Appox 350 mL of urine produced. Labs and urine were collected. PT receiving fluids at this time. Resting quietly in bed in nad.
[2021-05-05 03:10] LABS: MANUAL DIFF FLAG NO
[2021-05-05 03:11] LABS: Basophils Percent Auto 0.3 % (0-2); Eosinophils Absolute Auto 0.1 X10*3/uL (0.0-0.4); Eosinophils Percent Auto 0.8 % (0-4); Hematocrit 35.2 % (42-52); Hemoglobin 10.8 g/dl (14.0-18.0); Imm Gran Abs Auto 0.03 X10*3/uL (0.00-0.03); Imm Gran Pct Auto 0.3 % (0.0-0.4); Lymphocytes Absolute Auto 1.6 X10*3/uL (1.2-4.9); Lymphocytes Percent Auto 18.1 % (20-40); Mean Corpuscular HGB Conc 30.7 g/dl (31.0-36.0); Mean Corpuscular Hemoglobin 27.7 pg (27.0-33.0); Mean Corpuscular Volume 90.3 fL (80-98); Mean Platelet Volume 9.9 fL (9.4-12.4); Monocytes Absolute Auto 0.7 X10*3/uL (0.1-1.2); Monocytes Percent Auto 7.2 % (2-11); Neutrophils Absolute Auto 6.6 X10*3/uL (2.0-8.3); Neutrophils Percent Auto 73.3 % (45-73); Platelet Count 222 X10*3/uL (160-400); Red Cell Distribution Width 13.9 % (11.0-16.0)
[2021-05-05 03:25] LABS: Anion Gap 13 (12-20); Blood Urea Nitrogen 26 mg/dL (9-16); Calcium 7.8 mg/dL (8.4-10.2); Carbon Dioxide 19 mmol/L (22-29); Chloride 114 mmol/L (96-108); Estimated Glomerular Filt Rate 57; Glucose Random 76 mg/dL (60-115); Potassium 4.7 mmol/L (3.3-5.1); Sodium 141 mmol/L (135-145)
[2021-05-05 03:27] LABS: Amphetamine Screen Urine Not Detected (Not Detect); Barbiturates, Urine Not Detected (Not Detect); Benzodiazepines Screen Urine Not Detected (Not Detect); Cannabinoid Screen Urine POSITIVE (Not Detect); Cocaine Screen Urine POSITIVE (Not Detect); Fentanyl, urine POSITIVE (Not Detect); Opiate Screen Urine POSITIVE (Not Detect); Phencyclidine Screen Urine Not Detected (Not Detect)
--- NOTE | 2021-05-05 06:10 | PC.NURSE ---
PT is more easily arousable. Responding to questions and requesting food and drink. VSS. Fluids currently running. Phlebotomy is at bed side to draw labs.
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
--- NOTE | 2021-05-05 12:53 | MHC.CM.PN ---
CM ATTEMPTED TO SEE PT TWICE THROUGHOUT THE DAY. PT SLEEPING. CM TO RETURN. PER EMR AND PREVIOUS POSTDOCTORAL SCHOLAR, PT DOES NOT HAVE A PCP OR HCP.
[2021-05-05] MEDS: Dextrose 5 % and 0.45 % NaCl 1,000 ML 100 ML IVCONT (15:43)
[2021-05-05] MEDS: methADONE HCl 20 MG/2 ML ORAL.CONC 40 MG PO (15:45)
[2021-05-05 16:53] LABS: Glucose, Whole Blood 150 mg/dL (60-115)
[2021-05-05 22:43] LABS: Glucose, Whole Blood 85 mg/dL (60-115)
--- NOTE | 2021-05-06 00:45 | ECG_ITS ---
Test Reason : POSSIBLE ST ELEVATIO Blood Pressure : / mmHG Vent. Rate : 061 BPM Atrial Rate : 061 BPM P-R Int : 152 ms QRS Dur : 078 ms QT Int : 432 ms P-R-T Axes : 069 050 037 degrees QTc Int : 434 ms Normal sinus rhythm Possible Left atrial enlargement Left ventricular hypertrophy Abnormal ECG When compared with ECG of 16-MAR-2021 18:38, Left ventricular hypertrophy is now Present Referred By: Eliel Virk Electronically Signed By:KODAK AMAYA
[2021-05-06 01:39] LABS: Troponin-I High Sensitivity 4.2 ng/L (<3.5-35.0)
[2021-05-06 04:00] VITALS: BP 138/75; PULSE 66; RESP 16; TEMP 37.1; O2SAT 96
--- NOTE | 2021-05-06 06:39 | PC.NURSE ---
P: Pt noted to have possible ST elevation on tele monitor at 12:30am this morning. I: MD notified, 12 lead EKG and stat Troponin ordered. E: On EKG only T wave elevation noted, pt denies symptoms. Troponin negative.
[2021-05-06] MEDS: Dextrose 5 % and 0.45 % NaCl 1,000 ML 100 ML IVCONT (06:44)
[2021-05-06 06:56] LABS: Anion Gap 11 (12-20); Blood Urea Nitrogen 12 mg/dL (9-16); Calcium 8.4 mg/dL (8.4-10.2); Carbon Dioxide 25 mmol/L (22-29); Chloride 106 mmol/L (96-108); Creatinine Clr Calc Pharmacy 117.9; Estimated Glomerular Filt Rate > 60; Glucose Random 103 mg/dL (60-115); Potassium 3.6 mmol/L (3.3-5.1); Sodium 138 mmol/L (135-145)
[2021-05-06 07:40] VITALS: BP 168/76; PULSE 73; RESP 16; TEMP 36.9; O2SAT 98
--- NOTE | 2021-05-06 08:27 | P.PNIM_ITS ---
Subjective Subjective Date of Service: 05/06/21 Interval History: finally woke up this AM dressed and was going to sign out AMA unless he got his methadone dose trying to confirm dose with clinic now c/o muscle aches endorses cocaine abuse no chest pain Review of Systems Review of Systems: Yes all other systems are reviewed and are negative Physical Exam Vital Signs: Vital Signs: Last Vital Signs Temp 98.4 F 05/06/21 07:40 Pulse 73 05/06/21 07:40 Resp 16 05/06/21 07:40 BP 168/76 H 05/06/21 07:40 Pulse Ox 98 05/06/21 07:40 Body Mass Index 22.4 Gen: in no acute distress HEENT: sclera anicteric, moist mucus membranes Neck: supple Lungs: clear to auscultation bilaterally Heart: regular rate and rhythm, no murmurs Abd: soft, non-tender, non-distended Ext: no edema Skin: warm/well-perfused Neuro: alert and oriented x3, no focal findings Psych: restricted affect Objective Data Active Medications Acetaminophen (Acetaminophen 325 Mg Tablet) 650 mg PO Q6H PRN PRN Reason: Pain, Mild (Pain Scale 1-3) Dextrose/Sodium Chloride (D51/2ns) 1,000 mls @ 100 mls/hr IVCONT .Q10H [facility] Last Admin: 05/06/21 06:44 Dose: 100 mls/hr Documented by: VIOLETA Melatonin (Melatonin 3 Mg Tablet) 6 mg PO BEDTIME PRN PRN Reason: Insomnia Senna (Sennosides 8.6 Mg Tablet) 17.2 mg PO BEDTIME PRN PRN Reason: Constipation Sodium Chloride (0.9 % Sodium Chloride Flush 3 Ml Syringe) 3 ml IVFLUSH QSHIFT [facility] Last Admin: 05/05/21 23:39 Dose: Not Given Documented by: VIOLETA Non-Admin Reason: IV Running Labs CBC & Chem 7: 05/05/21 02:57 05/06/21 05:41 Labs: Laboratory Results - last 24 hr 05/04/21 05/04/21 05/05/21 21:06 21:15 16:48 Anion Gap Estim Creat Clear Calc Estimated GFR POC Glucose 53 L* 90 150 H Random Glucose Calcium Total Creatine Kinase Troponin I High Sens 05/05/21 05/06/21 05/06/21 22:39 01:00 05:41 Anion Gap 11 L Estim Creat Clear Calc 117.9 Estimated GFR > 60 POC Glucose 85 Random Glucose 103 D Calcium 8.4 D Total Creatine Kinase 1683 H Troponin I High Sens 4.2 Assessment and Plan (1) Rhabdomyolysis: Status: Acute (2) Acute renal injury: Status: Acute (3) Toxic metabolic encephalopathy: Status: Acute Assessment and Plan: hospital d#2 40yo M with substance abuse disorder on methadone found by EMS on side of road with altered mental status, hypoglycemia agitated delirium in ED prompting use of haloperidol and lorazepam # rhabdomyolysis - likely due to cocaine; change IV fluid to NS, trend CPK until <1000 # MIGUEL - likely due to cocaine abuse/prerenal azotemia, resolved # toxic/metabolic encephalopathy - due to cocaine + hypoglycemia, resolved # hypoglycemia - resolved, switch fluid to NS # urinary retention - likely also due to substance abuse; prn straight cath for scan >450 mL # substance abuse disorder - confirm methadone dosing - addiction medicine + CARE team consultations - screen HBV/HCV/HIV - sobriety counseled # VTE ppx - SCDs # dispo - needs PCP Quality Stroke Does the patient have a stroke diagnosis?: No VTE Prior VTE?: No VTE Risk Level:: Medical - moderate - high VTE Device Contraindication: N/A - Device Ordered VTE Drug Contraindication: Treatment Not Indicated
[2021-05-06] MEDS: methADONE HCl 20 MG/2 ML ORAL.CONC 55 MG PO (09:35)
--- NOTE | 2021-05-06 09:52 | MHC.CM.PN ---
PT PULLED OUT IV AND LEFT AMA.
--- NOTE | 2021-05-06 09:53 | PC.NURSE ---
Patient took out IV and took off monitor. Stating he wants to leave and he needs his methadone. Dr. Hankins up to talk to patient and agreed to stay. Spoke to patient about getting methadone dose. Methadone verified and given. Patient still insisting on leaving. Yana Harmon up to speak to patient. Dr Hankins notified of patient wanting to leave. Patient eloped while waiting for security and Seen walking from parking lot towards [facility] to notify methadone clinic that patient was dosed today.
--- NOTE | 2021-05-06 11:06 | MHC.RECOVRN ---
T/w notified pt wanted to leave AMA. Met with pt in 367. 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 Pt denies PCP use. Pt reports heroin use, does not elaborate. Pt encouraged to remain at [facility] to identify cause of confusion upon arrival. Pt states I have to go home to take care of some things. If anything, I'll come back, but I have to go. Pt exited room, security was notified. Pt eloped through back [facility] and was seen walking towards [facility]. Provider and security aware. [facility] notified that pt eloped and had been dosed with 55 mg methadone this morning.
--- NOTE | 2021-05-06 12:38 | PM.DS ---
DS: Providers Provider Date of Service: 05/06/21 Date of admission: 05/05/21 02:07 Primary care physician: Unknown Physician Consults: 05/05/21 15:01 Addiction Medicine Routine Consulting Provider: Sharon Corrales Reason for consultation: polysubstance abuse Has provider been notified: No Consult to Care Team Routine Comment: Reason for consultation: polysubstance abuse 05/06/21 08:32 Addiction Medicine Routine Consulting Provider: Sharon Corrales Reason for consultation: fentanyl, cocaine Consult to Care Team Routine Comment: Reason for consultation: cocaine, fentanly DS: Diagnosis Discharge Diagnosis (1) Toxic metabolic encephalopathy: Status: Acute (2) Rhabdomyolysis: Status: Acute (3) Acute renal injury: Status: Acute (4) Cocaine abuse: Status: Acute (5) Opioid abuse: Status: Acute DS: Summary Hospital Course Hospital Course: from admission H+P by hospitalist Eliel Virk, 05/05/21: At the time of my entry patient is drowsy /sleeping as he just received Haldol and Ativan for agitation in the ER.? Opens his eyes for verbal stimuli and falls back to sleep. Most of the history obtained from the records and ER staff. Reportedly patient was found by the EMS on the road and noted to have hypoglycemia with a blood sugar in 40s.? Subsequently brought him to the hospital. In the ER patient was agitated, confused, throwing himself on the bed; ER team gave him Haldol and Ativan; followed by patient calmed down and sleeping. I tried to reach the patient's mother serafin who mentioned that she has not seen the patient in months and does not know much about his health condition.? Review of systems is limited as patient is drowsy/sleepy. ER course:? As mentioned above ER team noted that patient's blood sugar was in 40s on presentation improved after giving him some 2; subsequently patient became agitated and was climbing out of the bed/thrashing himself in the bed; ER team came him Haldol and Ativan and subsequently patient became very sleepy; on labs noted to have MIGUEL with creatinine of 2.0 from baseline of 1.2.? And rhabdomyolysis with CPK and 1700s; patient was given IV fluids follow-up CPK noted to be elevated to 2100 hence decided to admit to the hospital for further management. The patient was admitted to the medical/surgical floor. He was given IV fluids for mild rhabdomyolysis. Prerenal azotemia resolved with fluid hydration. Hypoglycemia resolved. He woke up on 05/06/21 and was given his usual dose of methadone. Quite soon afterwards, though, he eloped from the hospital and could not be located on the campus of the hospital. Time Spent with Patient Time attestation: Total time spent providing and/or coordinating discharge services: Discharge coordination time: Less than 30 minutes Quality: Stroke Does the patient have a stroke diagnosis?: No Physical Exam Vital Signs: Vital Signs: Last Vital Signs Temp 98.4 F 05/06/21 07:40 Pulse 73 05/06/21 07:40 Resp 16 05/06/21 07:40 BP 168/76 H 05/06/21 07:40 Pulse Ox 98 05/06/21 07:40 Body Mass Index 22.4 see Progress Note for day of discharge for examination findings DS: Data Data Completed and Pending Completed studies during hospitalization [Text1]: Laboratory Results WBC 9.0 X10*3/uL (4.8-10.8) 05/05/21 02:57 RBC 3.90 X10*6/uL (4.60-5.80) L 05/05/21 02:57 Hgb 10.8 g/dl (14.0-18.0) L 05/05/21 02:57 Hct 35.2 % (42-52) L 05/05/21 02:57 MCV 90.3 fL (80-98) 05/05/21 02:57 MCH 27.7 pg (27.0-33.0) 05/05/21 02:57 MCHC 30.7 g/dl (31.0-36.0) L 05/05/21 02:57 RDW 13.9 % (11.0-16.0) 05/05/21 02:57 Plt Count 222 X10*3/uL (160-400) 05/05/21 02:57 MPV 9.9 fL (9.4-12.4) 05/05/21 02:57 Immature Gran % (Auto) 0.3 % (0.0-0.4) 05/05/21 02:57 Neut % (Auto) 73.3 % (45-73) H 05/05/21 02:57 Lymph % (Auto) 18.1 % (20-40) L 05/05/21 02:57 [place] % (Auto) 7.2 % (2-11) 05/05/21 02:57 Eos % (Auto) 0.8 % (0-4) 05/05/21 02:57 Baso % (Auto) 0.3 % (0-2) 05/05/21 02:57 Lymph # (Auto) 1.6 X10*3/uL (1.2-4.9) 05/05/21 02:57 [place] # (Auto) 0.7 X10*3/uL (0.1-1.2) 05/05/21 02:57 Eos # (Auto) 0.1 X10*3/uL (0.0-0.4) 05/05/21 02:57 Baso # (Auto) 0.0 X10*3/uL (0.0-0.2) 05/05/21 02:57 Abs Immat Gran (auto) 0.03 X10*3/uL (0.00-0.03) 05/05/21 02:57 Absolute Neuts (auto) 6.6 X10*3/uL (2.0-8.3) 05/05/21 02:57 Absolute Nucleated RBC 0.000 X10*3/uL (0.0-0.012) 05/05/21 02:57 Nucleated RBC % (auto) 0.0 /100WBC (0.0-0.2) 05/05/21 02:57 Sodium 138 mmol/L (135-145) 05/06/21 05:41 Potassium 3.6 mmol/L (3.3-5.1) D 05/06/21 05:41 Chloride 106 mmol/L (96-108) 05/06/21 05:41 Carbon Dioxide 25 mmol/L (22-29) 05/06/21 05:41 Anion Gap 11 (12-20) L 05/06/21 05:41 BUN 12 mg/dL (9-16) D 05/06/21 05:41 Creatinine 0.89 mg/dL (0.5-1.4) 05/06/21 05:41 Estim Creat Clear Calc 117.9 05/06/21 05:41 Estimated GFR > 60 05/06/21 05:41 POC Glucose 85 mg/dL (60-115) 05/05/21 22:39 Random Glucose 103 mg/dL (60-115) D 05/06/21 05:41 Calcium 8.4 mg/dL (8.4-10.2) D 05/06/21 05:41 Total Bilirubin 1.0 mg/dL (0.0-1.0) 05/04/21 22:07 AST 71 U/L (5-37) H 05/04/21 22:07 ALT 40 U/L (0-40) 05/04/21 22:07 Alkaline Phosphatase 105 U/L (39-117) 05/04/21 22:07 Total Creatine Kinase 1683 U/L (38-174) H 05/06/21 05:41 Troponin I High Sens 4.2 ng/L (<3.5-35.0) 05/06/21 01:00 Total Protein 6.7 g/dL (6.5-8.0) 05/04/21 22:07 Albumin 3.9 g/dL (3.5-5.0) 05/04/21 22:07 Salicylates < 5.0 mg/dL (15-30) L 05/04/21 22:07 Urine Opiates Screen POSITIVE (Not Detect) H 05/05/21 02:57 Urine Fentanyl Screen POSITIVE (Not Detect) H 05/05/21 02:57 Acetaminophen < 1 mcg/mL (<30) 05/04/21 22:07 Ur Barbiturates Screen Not Detected (Not Detect) 05/05/21 02:57 Ur Phencyclidine Scrn Not Detected (Not Detect) 05/05/21 02:57 Ur Amphetamines Screen Not Detected (Not Detect) 05/05/21 02:57 U Benzodiazepines Scrn Not Detected (Not Detect) 05/05/21 02:57 Urine Cocaine Screen POSITIVE (Not Detect) H 05/05/21 02:57 U Marijuana (THC) Screen POSITIVE (Not Detect) H 05/05/21 02:57 Ethyl Alcohol < 10 mg/dL 05/04/21 22:07 COVID-19 ([facility]) Negative (Negative) 05/05/21 02:05 COVID-19 Clin Com See Note 05/05/21 02:05 Discharge Plan Discharge Patient Disposition: Left Against Medical Advice Discharge Diagnosis: cocaine abuse, fentanyl abuse, rhabdomyolysis, acute kidney injury, eloped from hospital Referrals: Physician,Unknown [Primary Care Provider] - 1 Week Discharge Medications: No Action No Known Home Meds RF: 0 Unobtainable RF: 0 Discharge Orders: Discharge Order (Routine); Ordered 05/06/21 Ordered By: Glenn Hankins Care Plan Goals: return to hospital [facility] Health Concerns: return to hospital [facility] Plan of Treatment: return to hospital [facility] Assessment: return to hospital [facility] Discharge Date/Time: 05/06/21 10:37
== END 2021-05-06 10:37 | disposition left against medical advice (07) | DRG 816 ==
LOC: HO.ED 05-05 02:02 → HO.EDOVER 05-05 02:19 → HO.S3 05-05 07:20
PROVIDERS: Hospitalist; Admitting Provider Hospitalist; Emergency Provider Emergency Medicine; Visit Provider Family Medicine
DX: T40.5X1A Poisoning by cocaine, accidental (unintentional), initial encounter (principal); G92.8 Other toxic encephalopathy; N17.9 Acute kidney failure, unspecified; F11.20 Opioid dependence, uncomplicated; T79.6XXA Traumatic ischemia of muscle, initial encounter; Y92.410 Unspecified street and highway as the place of occurrence of the external cause; G92.9 Unspecified toxic encephalopathy; E86.0 Dehydration; R33.9 Retention of urine, unspecified; E16.2 Hypoglycemia, unspecified; Z20.822 Contact with and (suspected) exposure to COVID-19; F17.210 Nicotine dependence, cigarettes, uncomplicated; Z71.6 Tobacco abuse counseling
CPT/HCPCS: 36415; 80048; 80053; 80143; 80179; 80307; 82077; 82550; 82947; 83992; 84484; 85025; 87635; 93005; 99285; J2060